=== PATIENT | female | born 1930 | race Caucasian/White ===

== ENCOUNTER 2016-07-08 09:02 | Outpatient (RCR) | payer MEDICARE, OTHER ==
[~2016-07-08 09:02] MED LIST: GLIM2TAB PO; LIRA0.6P SQ; MTF500T PO; MTP25TSR PO; MULT-608 PO; [UNRECOGNIZED DRUG - OTHER] PO
--- OUTSIDE RECORDS SUMMARY | 2016-07-08 09:05 | XMS REPORT | Continuity of Care Document ---
Author Author [facility] Organization [facility] Address Unknown Phone Unavailable Care Team Providers Care Civil Clerk Name Role Phone AUDREY GAUTAM DO PCP Insurance Providers Payer Name Policy Number Subscriber Name Relationship [employer]ps Medicare [id number] DipaktrishkathevinnieYogesh Coleman 18 Self / Same As Patient Enter Insurance Name [id number] DipaktrishkatheYogesh [place] 18 Self / Same As Patient Advance Directives Directive Response Recorded Date/Time Advance Directives No 11/06/14 7:45am Organ Donor No 11/06/14 7:45am Problems No problem information available. Medications Current Home Medications Medication Dose Units Route Directions Days/Qty Instructions Start Date Metformin Hcl (Glucophage) 500 Mg 1 Each Oral Twice A Day With Meals 08/11/10 Glimepiride 2 Mg 2 Mg Oral Daily 08/11/10 Metoprolol Succinate 25 Mg 1 Each Oral Daily 08/11/10 Liraglutide 0.6 Mg/0.1 Ml 1.2 Mg Sub-Q Daily 08/11/10 Multivitamins 1 Tab 1 Tab Oral Daily 08/11/10 [Neutroview] 1 Tab Oral Daily 08/11/10 Social History Social History Problem Response Recorded Date/Time Recent Foreign Travel N [place] 10/03/2015 8:45am Do you dip or chew tobacco? No 11/06/2014 7:45am Hospital Discharge Instructions No hospital discharge instructions. Plan of Care Prescriptions See Medication Section Functional Status No functional status results. Allergies, Adverse Reactions, Alerts Allergen Type Severity Reaction Status Last Updated NKANo Known Allergies Allergy Unknown Active 02/25/06 Immunizations No immunization records. Vital Signs No known vital signs results. Results Laboratory Results Test Name Result Units Flags Reference Collection Date/Time Result Date/ Time Comments White Blood Count 4.2 10^3/uL L 4.3-11.0 10/03/2015 9:00am 10/03/2015 9: 09am Red Blood Count 4.29 10^6/uL L 4.35-5.85 10/03/2015 9:00am 10/03/2015 9: 09am Hemoglobin 14.4 G/DL 11.5-16.0 10/03/2015 9:00am 10/03/2015 9:09am Hematocrit 42 % 35-52 10/03/2015 9:00am 10/03/2015 9:09am Mean Corpuscular Volume 97 FL 80-99 10/03/2015 9:00am 10/03/2015 9: 09am Mean Corpuscular Hemoglobin 34 PG 25-34 10/03/2015 9:00am 10/03/2015 9: 09am Mean Corpuscular Hemoglobin Concent 35 G/DL 32-36 10/03/2015 9:00am 10/2015 9:09am Red Cell Distribution Width 12.1 % 10.0-14.5 10/03/2015 9:00am 2015 9:09am Platelet Count 180 10^3/uL 130-400 10/03/2015 9:00am 10/03/2015 9:09am Mean Platelet Volume 10.3 FL 7.4-10.4 10/03/2015 9:00am 10/03/2015 9: 09am Neutrophils (%) (Auto) 45 % 42-75 10/03/2015 9:00am 10/03/2015 9:09am Lymphocytes (%) (Auto) 39 % 12-44 10/03/2015 9:00am 10/03/2015 9:09am Monocytes (%) (Auto) 9 % 0-12 10/03/2015 9:00am 10/03/2015 9:09am Eosinophils (%) (Auto) 3 % 0-10 10/03/2015 9:00am 10/03/2015 9:09am Basophils (%) (Auto) 4 % 0-10 10/03/2015 9:00am 10/03/2015 9:09am Neutrophils # (Auto) 1.9 X 10^3 1.8-7.8 10/03/2015 9:00am 10/03/2015 9: 09am Lymphocytes # (Auto) 1.6 X 10^3 1.0-4.0 10/03/2015 9:00am 10/03/2015 9: 09am Monocytes # (Auto) 0.4 X 10^3 0.0-1.0 10/03/2015 9:00am 10/03/2015 9: 09am Eosinophils # (Auto) 0.1 10^3/uL 0.0-0.3 10/03/2015 9:00am 10/03/2015 9 :09am Basophils # (Auto) 0.2 10^3/uL H 0.0-0.1 10/03/2015 9:00am 10/03/2015 9: 09am Sodium Level 139 MMOL/L 135-145 10/03/2015 9:00am 10/03/2015 9:29am Potassium Level 4.3 MMOL/L 3.6-5.0 10/03/2015 9:00am 10/03/2015 9:29am Chloride Level 102 MMOL/L 98-107 10/03/2015 9:00am 10/03/2015 9:29am Carbon Dioxide Level 24 MMOL/L 21-32 10/03/2015 9:00am 10/03/2015 9: 29am Anion Gap 13 MMOL/L 5-14 10/03/2015 9:00am 10/03/2015 9:29am Blood Urea Nitrogen 10 MG/DL 7-18 10/03/2015 9:00am 10/03/2015 9:29am Creatinine 0.73 MG/DL 0.60-1.30 10/03/2015 9:00am 10/03/2015 9:29am BUN/Creatinine Ratio 14 10/03/2015 9:00am 10/03/2015 9:29am Estimat Glomerular Filtration Rate > 60 10/03/2015 9:00am 2015 9:29am GFR INTERPRETIVE DATA UNITS FOR ESTIMATED GFR (eGFR): mL/min/1.73 M2 REFERENCE RANGE FOR ESTIMATED GFR (eGFR) eGFR NORMAL eGFR >60 MODERATELY DECREASED eGFR 30-59 SEVERLY DECREASED eGFR 15-29 KIDNEY FAILURE <15 (OR DIALYSIS) Glucose Level 227 MG/DL H 70-105 10/03/2015 9:00am 10/03/2015 9:29am Calcium Level 9.3 MG/DL 8.5-10.1 10/03/2015 9:00am 10/03/2015 9:29am Total Bilirubin 0.5 MG/DL 0.1-1.0 10/03/2015 9:00am 10/03/2015 9:29am Alkaline Phosphatase 74 U/L 40-136 10/03/2015 9:00am 10/03/2015 9:29am Aspartate Amino Transf (AST/SGOT) 37 U/L H 5-34 10/03/2015 9:00am 2015 9:29am Alanine Aminotransferase (ALT/SGPT) 42 U/L 0-55 10/03/2015 9:00am 10/02 9:29am Total Protein 6.7 G/DL 6.4-8.2 10/03/2015 9:00am 10/03/2015 9:29am Albumin 3.8 G/DL 3.2-4.5 10/03/2015 9:00am 10/03/2015 9:29am Ferritin 317 NG/ML H 15-150 10/03/2015 9:00am 10/04/2015 6:55am Test performed at [address], [place] [address] CLIA# [id number], Mai Monique MD - Cherry Sorter Procedures No known history of procedures. Encounters Encounter Location Arrival/Admit Date Discharge/Depart Date Attending Provider Discharged Recurring [facility] 10/10/15 9:50am 11:59pm ROBERT BERMAN
[2016-07-08 09:42] LABS: BASOPHILS % (AUTO) 1 % (0-10); EOSINOPHILS # (AUTO) 0.2 10^3/uL (0.0-0.3); EOSINOPHILS % (AUTO) 4 % (0-10); LYMPHOCYTES # (AUTO) 1.7 X 10^3 (1.0-4.0); LYMPHOCYTES % (AUTO) 45 % (12-44); MEAN CORPUSCULAR HEMOGLOBIN 32 PG (25-34); MEAN CORPUSCULAR HGB CONC 35 G/DL (32-36); MEAN CORPUSCULAR VOLUME 92 FL (80-99); MEAN PLATELET VOLUME 10.5 FL (7.4-10.4); MONOCYTES # (AUTO) 0.4 X 10^3 (0.0-1.0); MONOCYTES % (AUTO) 10 % (0-12); NEUTROPHILS # (AUTO) 1.5 X 10^3 (1.8-7.8); NEUTROPHILS % (AUTO) 40 % (42-75); PLATELET COUNT 191 10^3/uL (130-400); RED BLOOD COUNT 4.04 10^6/uL (4.35-5.85); RED CELL DISTRIBUTION WIDTH 12.8 % (10.0-14.5); WHITE BLOOD COUNT 3.8 10^3/uL (4.3-11.0)
[2016-07-08 10:16] LABS: ALANINE AMINOTRANSFERASE 33 U/L (0-55); ALBUMIN 3.5 G/DL (3.2-4.5); ANION GAP 9 MMOL/L (5-14); ASPARTATE AMINO TRANSFERASE 39 U/L (5-34); BILIRUBIN,TOTAL 0.6 MG/DL (0.1-1.0); BLOOD UREA NITROGEN 8 MG/DL (7-18); BUN/CREATININE RATIO 12; CALCIUM 8.9 MG/DL (8.5-10.1); CARBON DIOXIDE 25 MMOL/L (21-32); CHLORIDE 104 MMOL/L (98-107); CREATININE SERUM 0.66 MG/DL (0.60-1.30); GFR ESTIMATED > 60; GLUCOSE 224 MG/DL (70-105); POTASSIUM 4.1 MMOL/L (3.6-5.0); SODIUM 138 MMOL/L (135-145); TOTAL PROTEIN 6.1 G/DL (6.4-8.2)
== END 2016-10-01 08:59 | disposition home or self-care (01) ==
LOC: ONC 09:02
PROVIDERS: ATTEND Internal Medicine Hematology & Oncology
DX: D50.9 Iron deficiency anemia, unspecified (principal); E11.9 Type 2 diabetes mellitus without complications; I10 Essential (primary) hypertension; E66.9 Obesity, unspecified; Z68.41 Body mass index [BMI] 40.0-44.9, adult; Z79.899 Other long term (current) drug therapy
CPT/HCPCS: 36415; 80053; 82728; 85025

== ENCOUNTER 2016-10-08 09:52 | Outpatient (RCR) | payer MEDICARE, OTHER ==
[2016-10-01 09:11] LABS: BASOPHILS # (AUTO) 0.1 10^3/uL (0.0-0.1); BASOPHILS % (AUTO) 1 % (0-10); EOSINOPHILS # (AUTO) 0.2 10^3/uL (0.0-0.3); EOSINOPHILS % (AUTO) 4 % (0-10); LYMPHOCYTES % (AUTO) 38 % (12-44); MEAN CORPUSCULAR HEMOGLOBIN 33 PG (25-34); MEAN CORPUSCULAR HGB CONC 36 G/DL (32-36); MEAN CORPUSCULAR VOLUME 92 FL (80-99); MEAN PLATELET VOLUME 10.3 FL (7.4-10.4); MONOCYTES # (AUTO) 0.6 X 10^3 (0.0-1.0); MONOCYTES % (AUTO) 11 % (0-12); NEUTROPHILS # (AUTO) 2.5 X 10^3 (1.8-7.8); NEUTROPHILS % (AUTO) 46 % (42-75); PLATELET COUNT 194 10^3/uL (130-400); RED BLOOD COUNT 4.14 10^6/uL (4.35-5.85); RED CELL DISTRIBUTION WIDTH 12.3 % (10.0-14.5); WHITE BLOOD COUNT 5.4 10^3/uL (4.3-11.0)
--- OUTSIDE RECORDS SUMMARY | 2016-10-01 09:22 | XMS REPORT | Continuity of Care Document ---
Author Author [facility] Organization [facility] Address Unknown Phone Unavailable Care Team Providers Care Heart Surgeon Name Role Phone AUDREY GAUTAM DO PCP Insurance Providers Payer Name Policy Number Subscriber Name Relationship [employer] [id number] DipaktrishkathevinnieYogesh Coleman 18 Self / Same As Patient Enter Insurance Name [id number] DipaktrishkatheYogesh [place] 18 Self / Same As [...] 10/03/2015 9:00am 10/04/2015 6:55am Test performed at [address], [place] [address] CLIA# [id number], Mai Monique MD - Voice Network Administrator Procedures No known history of procedures. Encounters Encounter Location Arrival/Admit Date Discharge/Depart Date Attending Provider Discharged Recurring [facility] 10/10/15 9:50am 11:59pm ROBERT BERMAN
[2016-10-01 09:58] LABS: ALANINE AMINOTRANSFERASE 39 U/L (0-55); ALBUMIN 3.9 G/DL (3.2-4.5); ANION GAP 12 MMOL/L (5-14); ASPARTATE AMINO TRANSFERASE 40 U/L (5-34); BILIRUBIN,TOTAL 0.6 MG/DL (0.1-1.0); BLOOD UREA NITROGEN 10 MG/DL (7-18); BUN/CREATININE RATIO 13; CALCIUM 9.5 MG/DL (8.5-10.1); CARBON DIOXIDE 24 MMOL/L (21-32); CHLORIDE 104 MMOL/L (98-107); CREATININE SERUM 0.77 MG/DL (0.60-1.30); GFR ESTIMATED > 60; GLUCOSE 143 MG/DL (70-105); POTASSIUM 4.2 MMOL/L (3.6-5.0); SODIUM 140 MMOL/L (135-145); TOTAL PROTEIN 6.7 G/DL (6.4-8.2)
[2016-12-18] MEDS ORDERED: METO-333 PO (10:10)
[2016-12-18] MEDS ORDERED: GLIM4TAB PO (10:10)
[2016-12-18] MEDS ORDERED: METF-478 PO (10:10)
[2016-12-19] MEDS ORDERED: METO-272 PO (11:40)
[2016-12-19] MEDS ORDERED: NITR-65 PO (11:40)
== END 2016-12-30 | disposition home or self-care (01) ==
LOC: ONC 09:52
PROVIDERS: ATTEND Internal Medicine Hematology & Oncology
DX: D50.9 Iron deficiency anemia, unspecified (principal); E11.9 Type 2 diabetes mellitus without complications; I10 Essential (primary) hypertension; E66.9 Obesity, unspecified; Z68.41 Body mass index [BMI] 40.0-44.9, adult; Z79.899 Other long term (current) drug therapy
CPT/HCPCS: 36415; 80053; 82728; 85025; 99213

== ENCOUNTER 2016-12-17 14:03 | Inpatient (IN) | payer MEDICARE, OTHER ==
[2016-12-17] VITALS (8 sets, daily range): BP systolic 139–181; BP diastolic 57–82
[~2016-12-17] VITALS: Ht 152.4 cm; Wt 91.3 kg
--- NOTE | 2016-12-17 14:25 | ED Neurological Problem ---
General Chief Complaint: Neuro-Stroke Like Symptoms Stated Complaint: STROKE LIKE SYMPTOMS Source: patient Exam Limitations: no limitations History of Present Illness Time seen by provider: 14:06 Initial Comments Here with report of difficulty with speech. At about 110 p.m. this afternoon, patient was on the phone with her friend and about 3 minutes into the conversation, patient started having difficulty with speech. Patient's daughter was called who brought her to the ER. Word searching difficulty and confusion continued until arrival. Denies nausea or vomiting. Denies chest pain. Denies breathing problems. Timing/Duration: 1 hour, other (unknown last known well time) Severity: moderate Associated Symptoms: confusion, No fever/chills, No muscle spasms, No nausea/ vomiting, No numbness in legs/feet, No trouble walking Allergies and Home Medications Allergies Coded Allergies: No Known Drug Allergies (Unverified , 12/17/16) Home Medications Glimepiride 2 Mg Tablet, 2 MG PO DAILY, (Reported) Metformin Hcl 500 Mg Tablet, 1 EACH PO BID WITH MEALS, (Reported) Metoprolol Succinate 25 Mg Tab.sr.24h, 1 EACH PO DAILY, (Reported) Multivitamins 1 Tab Tablet, 1 TAB PO DAILY, (Reported) Constitutional: see HPI, No fever, No weakness Eyes: No Symptoms Reported Ears, Nose, Mouth, Throat: no symptoms reported Respiratory: No cough, No short of breath Cardiovascular: no symptoms reported Gastrointestinal: no symptoms reported Genitourinary: no symptoms reported Musculoskeletal: no symptoms reported Skin: no symptoms reported Psychiatric/Neurological: See HPI, Denies Unable to Move Lower Ext, Denies Unable to Move Upper Ext Endocrine: No Symptoms Reported All Other Systems Reviewed Negative Unless Noted: Yes Past Abdzcjl-Vspdku-Qyeiyl Hx Patient Social History Alcohol Use: Denies Use Recreational Drug Use: No Smoking Status: Never a Smoker Recent Foreign Travel: No Contact w/Someone Who Travel: No Surgeries HX Surgeries: Yes Surgeries: Abdominal, Appendectomy, Eye Surgery, Gallbladder, Hysterectomy, Orthopedic Respiratory Hx Respiratory Disorders: No Cardiovascular Hx Cardiac Disorders: Yes Cardiac Disorders: Hypertension Neurological Hx Neurological Disorders: No Reproductive System Hx Reproductive Disorders: No Genitourinary Hx Genitourinary Disorders: Yes (INCONTINENCE) Gastrointestinal Hx Gastrointestinal Disorders: No Musculoskeletal Hx Musculoskeletal Disorders: Yes Endocrine Hx Endocrine Disorders: Yes Endocrine Disorders: Diabetes, Non-Insulin dep Blood Transfusions Hx Blood Disorders: No Reviewed Nursing Assessment Reviewed/Agree w Nursing PMH: Yes Family Medical History Significant Family History: No Pertinent Family Hx Physical Exam Vital Signs Vital Sign - Last 12Hours 12/17/16 14:03 Temp 98.3 Pulse 103 Resp 18 B/P (MAP) 198/112 Pulse Ox 98 O2 Delivery Room Air Capillary Refill : General Appearance: WD/WN, no apparent distress HEENT: PERRL/EOMI, pharynx normal Neck: full range of motion, supple Respiratory: lungs clear, normal breath sounds Cardiovascular: no murmur, tachycardia Gastrointestinal: non tender, soft Back: normal inspection, no CVA tenderness, no vertebral tenderness Extremities: non-tender, normal inspection Neurologic/Psychiatric: alert, oriented x 3 Crainal Nerves: normal hearing, normal speech, PERRL Coordination/Gait: normal finger to nose Motor/Sensory: no motor deficit, no sensory deficit, no pronator drift Skin: normal color, warm/dry Focused Exam Lactic Acid Level Laboratory Tests Test 12/17/16 15:44 Lactic Acid Level 2.89 MMOL/L (0.50-2.00) *H Progress/Results/Core Measures Results/Orders Lab Results Laboratory Tests Test 12/17/16 14:23 12/17/16 14:38 12/17/16 14:43 12/17/16 15:44 Range/Units White Blood Count 5.4 4.3-11.0 10^3/uL Red Blood Count 4.18 L 4.35-5.85 10^6/uL Hemoglobin 13.7 11.5-16.0 G/DL Hematocrit 39 35-52 % Mean Corpuscular Volume 93 80-99 FL Mean Corpuscular Hemoglobin 33 25-34 PG Mean Corpuscular Hemoglobin Concent 35 32-36 G/DL Red Cell Distribution Width 12.4 10.0-14.5 % Platelet Count 151 130-400 10^3/uL Mean Platelet Volume 11.0 H 7.4-10.4 FL Neutrophils (%) (Auto) 47 42-75 % Lymphocytes (%) (Auto) 41 12-44 % Monocytes (%) (Auto) 8 0-12 % Eosinophils (%) (Auto) 4 0-10 % Basophils (%) (Auto) 1 0-10 % Neutrophils # (Auto) 2.5 1.8-7.8 X 10^3 Lymphocytes # (Auto) 2.2 1.0-4.0 X 10^3 Monocytes # (Auto) 0.4 0.0-1.0 X 10^3 Eosinophils # (Auto) 0.2 0.0-0.3 10^3/uL Basophils # (Auto) 0.0 0.0-0.1 10^3/uL Sodium Level 137 135-145 MMOL/L Potassium Level 4.1 3.6-5.0 MMOL/L Chloride Level 103 98-107 MMOL/L Carbon Dioxide Level 24 21-32 MMOL/L Anion Gap 10 5-14 MMOL/L Blood Urea Nitrogen 8 7-18 MG/DL Creatinine 0.76 0.60-1.30 MG/DL Estimat Glomerular Filtration Rate > 60 BUN/Creatinine Ratio 11 Glucose Level 206 H 70-105 MG/DL Calcium Level 9.2 8.5-10.1 MG/DL Total Bilirubin 0.5 0.1-1.0 MG/DL Aspartate Amino Transf (AST/SGOT) 44 H 5-34 U/L Alanine Aminotransferase (ALT/SGPT) 39 0-55 U/L Alkaline Phosphatase 68 40-136 U/L Troponin I < 0.30 <0.30 NG/ML Total Protein 6.6 6.4-8.2 G/DL Albumin 3.7 3.2-4.5 G/DL Prothrombin Time 12.5 12.2-14.7 SEC INR Comment 1.0 0.8-1.4 Activated Partial Thromboplast Time 30 24-35 SEC D-Dimer 0.66 H 0.00-0.49 UG/ML Urine Color YELLOW Urine Clarity CLEAR Urine pH 6 5-9 Urine Specific Channing 1.010 L 1.016-1.022 Urine Protein 1+ H NEGATIVE Urine Glucose (UA) 2+ H NEGATIVE Urine Ketones NEGATIVE NEGATIVE Urine Nitrite NEGATIVE NEGATIVE Urine Bilirubin NEGATIVE NEGATIVE Urine Urobilinogen NORMAL NORMAL MG/DL Urine Leukocyte Esterase 2+ H NEGATIVE Urine RBC (Auto) NEGATIVE NEGATIVE Urine RBC NONE /HPF Urine WBC 5-10 H /HPF Urine Squamous Epithelial Cells NONE /HPF Urine Crystals NONE /LPF Urine Bacteria LARGE H /HPF Urine Casts NONE /LPF Urine Mucus NEGATIVE /LPF Urine Culture Indicated YES Lactic Acid Level 2.89 *H 0.50-2.00 MMOL/L My Orders Orders - SANCHEZ BAEZA MD Cbc With Automated Diff (12/17/16 14:07) Protime With Inr (12/17/16 14:07) Partial Thromboplastin Time (12/17/16 14:07) Comprehensive Metabolic Panel (12/17/16 14:07) Fibrin Degradation Products (12/17/16 14:07) Troponin I (12/17/16 14:07) Ua Culture If Indicated (12/17/16 14:07) Chest 1 View, Ap/Pa Only (12/17/16 14:07) Catheter(Urinary) Insert & Ass 03,15 (12/17/16 14:07) Ekg Tracing (12/17/16 14:07) Nothing By Mouth (12/17/16 Dinner) Accucheck Stat ONCE (12/17/16 14:07) Saline Lock/Iv-Start (12/17/16 14:07) Saline Lock/Iv-Start (12/17/16 14:07) Vital Signs-Stroke Q1H (12/17/16 14:07) Ct Head Wo-R/O Stroke (12/17/16 14:07) O2 (12/17/16 14:07) Intake & Output 06,14,22 (12/17/16 14:07) Monitor-Rhythm Ecg Trace Only (12/17/16 14:07) Dysphagia Screening Tool (12/17/16 14:07) Sao2 W/End-Tidal Monitoring (O Q15M (12/17/16 14:07) Labetalol Injection (Normodyne Injection (12/17/16 14:45) Labetalol Injection (Normodyne Injection (12/17/16 14:31) Alteplase (Activase) (Activase Injection (12/17/16 14:40) Urine Culture (12/17/16 14:43) Lactic Acid Analyzer (12/17/16 15:02) Blood Culture (12/17/16 15:02) Ceftriaxone Injection (Rocephin Injectio (12/17/16 15:15) Medications Given in ED Current Medications Medications Dose Ordered Sig/Kate Route Start Time Stop Time Status Last Admin Dose Admin Aspirin 324 mg ONCE ONCE PO 12/17/16 15:45 12/17/16 15:47 DC 12/17/16 15:56 324 MG Ceftriaxone Sodium 1000 mg/ Sodium Chloride 50 ml @ 100 mls/hr ONCE ONCE IV 12/17/16 15:15 12/17/16 15:45 DC 12/17/16 16:03 100 MLS/HR Labetalol HCl 20 mg ONCE ONCE IV 12/17/16 14:45 12/17/16 14:46 DC 12/17/16 14:38 20 MG Labetalol HCl 20 mg STK-MED ONCE .ROUTE 12/17/16 14:31 12/17/16 14:36 DC 12/17/16 14:57 20 MG Vital Signs/I&O Vital Sign - Last 12Hours 12/17/16 12/17/16 14:03 14:03 Temp 98.3 Pulse 103 Resp 18 B/P (MAP) 198/112 Pulse Ox 98 98 O2 Delivery Room Air Point of Care Testing Finger Stick Blood Glucose: 190 Blood Glucose Action Taken: notified Progress Note : Progress Note Seen and evaluated. Stroke team activation on arrival. Patient has difficulty with speech and there is confusion. Stroke scale only positive for confusion and speech difficulty. CT head, labs, EKG, chest x-ray, IVs and Anthony catheter ordered. Monitor patient. 1439: Patient does score 2 on the stroke scale. I did discuss the case with the neurologist on-call at , Dr. Alvarez. We both agree that patient would benefit from TPA given current findings. 1445: Labetalol 20 mg IV given for her elevated blood pressure and her blood pressure is improved. Patient is actually symptom-free currently. We did ambulate the patient and she is able to walk with a steady gait on her own accord. Blood pressure elevating again. Repeat labetalol 20 mg IV ordered. 1459: Blood pressure 161/83 with resolved symptoms. 1501: UTI noted. Blood cultures and lactic acid ordered although there is no indication of sepsis or septic shock currently. Rocephin 1 g IV afterwards. We will admit the patient to the hospital. 1507: She has responded quite well to 2 labetalol dosings and blood pressure currently 169/79 with heart rate of 92 and O2 sat 98 percent on room air. 1337: I did discuss the case with Dr. Finn and she accepts patient for admission, inpatient status. Case discussed with Dr. Morrison at 1542. He accepts patient in consult. He is recommending Toprol-XL 100 mg by mouth now and then daily. This was ordered. Discussed findings, concerns and admission with patient and family who agree with plan. 1604: Patient had return of speech difficulty. Stroke scale repeated and only shows abnormality related to confusion and word finding similar to previous. I did rediscuss the case with stroke team. Given findings and situation new findings of elevated lactic acid this may be related to urinary tract infection. This also could be related to waxing and waning stroke. TPA may be indicated and could be given and the situation. He is recommending discussion with family. 1634: I did have a long discussion with patient and family about TPA administration. During this discussion, patient's symptoms resolved. Patient was only given 50 mg of Toprol-XL as her blood pressure had actually decreased to 130 over 80s. Currently 188/84 with heart rate of 94 and O2 sat are 97 percent. Patient does have findings of severe sepsis but not septic shock given her lactic acid of 2.89 and does not require high-volume fluid resuscitation. She has had blood cultures and lactic acid drawn and has had initial antibiotic of Rocephin 1 g IV. We will continue that. Patient was changed to ICU admission given waxing and waning symptoms. Patient and family agree with holding on TPA given current situation. She is currently back at complete symptom resolution and the option of TPA would be open starting at new time of change if found. ECG Initial ECG Impression Date: December 17, 2016 Initial ECG Impression Time: 14:11 Initial ECG Rate: 108 Initial ECG Rhythm: S.Tach Comment Sinus tachycardia with normal axis. No evidence of ST elevation FL. Similar to previous but rate increased from 11/16/14. Interpreted by me. Diagnostic Imaging Diagonstic Imaging: CT Plain Films/CT/US/NM/MRI: head Comments NAME: YOGESH OLMEDO [facility] REC#: [id number] PT STATUS: REG ER : 1932 PHYSICIAN: SANCHEZ BAEZA MD ADMIT DATE: 12/17/16/ER Draft Date of Exam:12/17/16 CT HEAD WO-R/O STROKE EXAM: CT HEAD WO-R/O STROKE INDICATION: Stroke. Slurred speech. COMPARISON: None. FINDINGS: Moderate generalized cerebral and cerebellar parenchymal volume loss. Moderate leukoaraiosis. No CT evidence of acute infarction. No intracranial hemorrhage, mass effect, hydrocephalus, or extra-axial fluid collections. Intracranial vascular calcifications. The paranasal sinuses and mastoids are clear. Orbits are unremarkable. IMPRESSION: No acute intracranial CT findings. Dictated on workstation # [id number] Dict: 12/17/16 1431 Trans: 12/17/16 1436 SAVANNAH [id number] Interpreted by: HODA BLAIR MD Electronically signed by: [facility] Imaging: Xray Plain Films/CT/US/NM/MRI: chest Comments NAME: YOGESH OLMEDO [facility] REC#: [id number] PT STATUS: REG ER : 1932 PHYSICIAN: SANCHEZ BAEZA MD ADMIT DATE: 12/17/16/ER Signed Date of Exam: 12/17/16 CHEST 1 VIEW, AP/PA ONLY Indication: Stroke symptoms PA chest obtained at 2233 hrs pm, and compared with 08/13/14. The heart is mildly enlarged. The mediastinal silhouette is unremarkable. There are mild chronic appearing increased basilar markings. There is no acute infiltrate or pneumothorax or pleural fluid. IMPRESSION: Mild cardiomegaly with mild chronic appearing increased basilar markings. No acute consolidation or pleural fluid. Dictated by: Dictated on workstation # [id number] Dict: 12/17/16 1435 Trans: 12/17/16 1454 Interpreted by: ESCOBAR ADAIR MD Electronically signed by: ESCOBAR ADAIR MD 12/17/16 1454 Departure Communication Time/Spoke to Admitting Phy: 15:37 Time/Spoke to Consulting Physi: 15:42 Impression Impression: Primary Impression: Hypertensive encephalopathy Additional Impressions: TIA (transient ischemic attack) Qualified Codes: G45.9 - Transient cerebral ischemic attack, unspecified UTI (urinary tract infection) Qualified Codes: N30.00 - Acute cystitis without hematuria Disposition: ADMITTED INPATIENT Condition: Stable Decision to Admit Reason: Admit from ER (General) Decision to Admit/Date: December 17, 2016 Time/Decision to Admit Time: 15:37 Departure-Patient Inst. Referrals: AUDREY GAUTAM DO (PCP) Primary Care Physician ARMAAN GAUTAM, MIKE (Family) Primary Care Physician SANCHEZ BAEZA MD December 17, 2016 14:25
[2016-12-17 14:30] LABS: BASOPHILS % (AUTO) 1 % (0-10); EOSINOPHILS # (AUTO) 0.2 10^3/uL (0.0-0.3); EOSINOPHILS % (AUTO) 4 % (0-10); LYMPHOCYTES # (AUTO) 2.2 X 10^3 (1.0-4.0); LYMPHOCYTES % (AUTO) 41 % (12-44); MEAN CORPUSCULAR HEMOGLOBIN 33 PG (25-34); MEAN CORPUSCULAR HGB CONC 35 G/DL (32-36); MEAN CORPUSCULAR VOLUME 93 FL (80-99); MONOCYTES # (AUTO) 0.4 X 10^3 (0.0-1.0); MONOCYTES % (AUTO) 8 % (0-12); NEUTROPHILS # (AUTO) 2.5 X 10^3 (1.8-7.8); NEUTROPHILS % (AUTO) 47 % (42-75); PLATELET COUNT 151 10^3/uL (130-400); RED BLOOD COUNT 4.18 10^6/uL (4.35-5.85); RED CELL DISTRIBUTION WIDTH 12.4 % (10.0-14.5); WHITE BLOOD COUNT 5.4 10^3/uL (4.3-11.0)
[2016-12-17] MEDS ORDERED: LABETALOL HCL 20 MG/4 ML VIAL ONE (14:31)
--- NOTE | 2016-12-17 14:36 | Diagnostic Imaging Report ---
EXAM: CT HEAD WO-R/O STROKE INDICATION: Stroke. Slurred speech. COMPARISON: None. FINDINGS: Moderate generalized cerebral and cerebellar parenchymal volume loss. Moderate leukoaraiosis. No CT evidence of acute infarction. No intracranial hemorrhage, mass effect, hydrocephalus, or extra-axial fluid collections. Intracranial vascular calcifications. The paranasal sinuses and mastoids are clear. Orbits are unremarkable. IMPRESSION: No acute intracranial CT findings. Dictated by: Dictated on workstation # [id number]
--- NOTE | 2016-12-17 14:39 | Diagnostic Imaging Report ---
Indication: Stroke symptoms PA chest obtained at 2233 hrs pm, and compared with 08/13/14. The heart is mildly enlarged. The mediastinal silhouette is unremarkable. There are mild chronic appearing increased basilar markings. There is no acute infiltrate or pneumothorax or pleural fluid. IMPRESSION: Mild cardiomegaly with mild chronic appearing increased basilar markings. No acute consolidation or pleural fluid. Dictated by: Dictated on workstation # [id number]
[2016-12-17] MEDS ORDERED: ALTEPLASE 100 MG/VIAL (ACTIVASE) IV ONE (14:40)
[2016-12-17] MEDS ORDERED: LABETALOL HCL 20 MG/4 ML VIAL IV ONE (14:45)
[2016-12-17 14:52] LABS: BILIRUBIN,URINE NEGATIVE (NEGATIVE); KETONES,URINE NEGATIVE (NEGATIVE); LEUKOCYTE ESTERASE ,URINE 2+ (NEGATIVE); NITRITE,URINE NEGATIVE (NEGATIVE); PH,URINE 6 (5-9); PROTEIN,URINE 1+ (NEGATIVE); UROBILINOGEN,URINE NORMAL (NORMAL)
[2016-12-17 14:55] LABS: PROTHROMBIN TIME PATIENT 12.5 SEC (12.2-14.7)
[2016-12-17 14:57] LABS: ALANINE AMINOTRANSFERASE 39 U/L (0-55); ALBUMIN 3.7 G/DL (3.2-4.5); ANION GAP 10 MMOL/L (5-14); ASPARTATE AMINO TRANSFERASE 44 U/L (5-34); BILIRUBIN,TOTAL 0.5 MG/DL (0.1-1.0); BLOOD UREA NITROGEN 8 MG/DL (7-18); BUN/CREATININE RATIO 11; CALCIUM 9.2 MG/DL (8.5-10.1); CARBON DIOXIDE 24 MMOL/L (21-32); CHLORIDE 103 MMOL/L (98-107); CREATININE SERUM 0.76 MG/DL (0.60-1.30); GFR ESTIMATED > 60; GLUCOSE 206 MG/DL (70-105); POTASSIUM 4.1 MMOL/L (3.6-5.0); SODIUM 137 MMOL/L (135-145); TOTAL PROTEIN 6.6 G/DL (6.4-8.2)
[2016-12-17 15:08] LABS: TROPONIN I < 0.30 NG/ML (<0.30)
[2016-12-17] MEDS ORDERED: cefTRIAXone INJECTION 1,000 MG in NS (IVPB) 50 ML IV ONE (15:15)
[2016-12-17] MEDS ORDERED: ASPIRIN 81 MG CHEW (CHILDREN'S ASA) PO ONE (15:45)
[2016-12-17] MEDS ORDERED: ASPIRIN 325 MG (5 GR) TABLET ONE (15:55)
[2016-12-17] MEDS ORDERED: meTOprolol SUCCINATE 100 MG (TOPROL XL) TAB PO ONE (16:00)
[2016-12-17] MEDS ORDERED: CATHETER FLUSH 10 ML SYR IV PRN (17:15)
[2016-12-17] MEDS ORDERED: NS IV 1000 ML 1,000 ML IV SCH (17:15)
[2016-12-17] MEDS ORDERED: meTOprolol 5 MG/5 ML (LOPRESSOR) VIAL IV PRN (18:15)
--- NOTE | 2016-12-17 18:45 | Diagnostic Imaging Report ---
INDICATION: Transient ischemic attacks. EXAMINATION: Carotid Doppler study was performed in the routine fashion with color flow Doppler and waveform analysis. FINDINGS: There is some plaquing visualized in the carotid bifurcations on both sides. There is no significant velocity elevation. ICA/CCA systolic velocity ratio is 0.94 maximally in the right carotid territory and 0.70 maximally in the left carotid territory. Both vertebrals show antegrade flow. IMPRESSION: Mild plaquing in the carotid bifurcations on both sides with no significant stenosis hemodynamically. Dictated by: Dictated on workstation # [id number]
[2016-12-17] MEDS ORDERED: ACETAMINOPHEN 325 MG TABLET/CAPLET (TYLENOL) ONE (20:57)
[2016-12-17] MEDS: ACETAMINOPHEN 500 MG TAB (TYLENOL) PO PRN (21:04)
[2016-12-17] MEDS ORDERED: hydrALAZINE (APESOLINE) 20 MG/ML VIAL ONE (22:16)
[2016-12-17] MEDS: inSUlin (REGULAR) HUMAN 1 UNIT/0.01 ML (CHARGE PER UNIT) SC SCH (22:25)
[2016-12-17] MEDS ORDERED: hydrALAZINE (APESOLINE) 20 MG/ML VIAL IV ONE (22:30)
[2016-12-17] MEDS: NS IV 1000 ML 1,000 ML IV SCH ×2 (22:34→23:31)
[2016-12-18] VITALS (13 sets, daily range): BP systolic 120–181; BP diastolic 51–82
[2016-12-18] MEDS: NS IV 1000 ML 1,000 ML IV SCH (00:32)
[2016-12-18] MEDS ORDERED: ACETAMINOPHEN 325 MG TABLET/CAPLET (TYLENOL) ONE (01:38)
[2016-12-18] MEDS: ACETAMINOPHEN 500 MG TAB (TYLENOL) PO PRN (01:43)
[2016-12-18] MEDS ORDERED: KETOROLAC 30 MG/ML VIAL IVP ONE (03:15)
[2016-12-18 04:49] LABS: BASOPHILS % (AUTO) 0 % (0-10); EOSINOPHILS # (AUTO) 0.1 10^3/uL (0.0-0.3); EOSINOPHILS % (AUTO) 1 % (0-10); LYMPHOCYTES # (AUTO) 1.6 X 10^3 (1.0-4.0); LYMPHOCYTES % (AUTO) 20 % (12-44); MEAN CORPUSCULAR HEMOGLOBIN 33 PG (25-34); MEAN CORPUSCULAR HGB CONC 35 G/DL (32-36); MEAN CORPUSCULAR VOLUME 93 FL (80-99); MEAN PLATELET VOLUME 10.9 FL (7.4-10.4); MONOCYTES # (AUTO) 0.6 X 10^3 (0.0-1.0); MONOCYTES % (AUTO) 8 % (0-12); NEUTROPHILS # (AUTO) 5.5 X 10^3 (1.8-7.8); NEUTROPHILS % (AUTO) 71 % (42-75); PLATELET COUNT 207 10^3/uL (130-400); RED BLOOD COUNT 4.06 10^6/uL (4.35-5.85); RED CELL DISTRIBUTION WIDTH 12.5 % (10.0-14.5); WHITE BLOOD COUNT 7.7 10^3/uL (4.3-11.0)
[2016-12-18 05:08] LABS: ALANINE AMINOTRANSFERASE 32 U/L (0-55); ALBUMIN 3.4 G/DL (3.2-4.5); ANION GAP 13 MMOL/L (5-14); ASPARTATE AMINO TRANSFERASE 39 U/L (5-34); BILIRUBIN,TOTAL 0.8 MG/DL (0.1-1.0); BLOOD UREA NITROGEN 6 MG/DL (7-18); BUN/CREATININE RATIO 10; CALCIUM 8.6 MG/DL (8.5-10.1); CARBON DIOXIDE 21 MMOL/L (21-32); CHLORIDE 104 MMOL/L (98-107); CREATININE SERUM 0.63 MG/DL (0.60-1.30); GFR ESTIMATED > 60; GLUCOSE 124 MG/DL (70-105); MAGNESIUM 1.8 MG/DL (1.8-2.4); PHOSPHORUS 3.6 MG/DL (2.3-4.7); SODIUM 138 MMOL/L (135-145)
[2016-12-18] MEDS ORDERED: KCL 20 MEQ TAB (K-DUR) PO SCH (06:00)
[2016-12-18] MEDS ORDERED: POTASSIUM CL 10MEQ/50ML IVPB 50 ML IV SCH (06:00)
[2016-12-18] MEDS: inSUlin (REGULAR) HUMAN 1 UNIT/0.01 ML (CHARGE PER UNIT) SC SCH ×4 (06:00→22:01)
[2016-12-18] MEDS ORDERED: MAGNESIUM 1 GM/100 ML IVPB 100 ML IV SCH (06:00)
--- NOTE | 2016-12-18 06:15 | Pulmonary Consultation ---
History of Present Illness History of Present Illness Date of Consultation 12/18/16 06:10 Date of Admission History of Present Illness 86yo presented to ED secondary to dysphonia. symptoms started at 1310 while she was on the phone with a friend. Patient's daughter was called and brought her to ED. Pt did not receive TPA. NIH in ED 2 and is now 0. Denies nausea or vomiting. Denies chest pain. Denies breathing problems. Pt was also found to have a UTI without leukocytosis however LA was found to be 2.96. CT head is negative. No prior episodes like this. I am consulted for pulmonary management. Allergies and Home Medications Allergies Coded Allergies: No Known Drug Allergies (Unverified , 12/17/16) Home Medications Glimepiride 2 Mg Tablet, 2 MG PO DAILY, (Reported) Metformin Hcl 500 Mg Tablet, 1 EACH PO BID WITH MEALS, (Reported) Metoprolol Succinate 25 Mg Tab.sr.24h, 1 EACH PO DAILY, (Reported) Multivitamins 1 Tab Tablet, 1 TAB PO DAILY, (Reported) Past Wwxybxq-Xyayru-Fuqoos Hx Patient Social History Alcohol Use: Denies Use Recreational Drug Use: No Smoking Status: Never a Smoker Recent Foreign Travel: No Contact w/Someone Who Travel: No Recent Infectious Disease Expo: No Recent Hopitalizations: No Physical Abuse Screen: No Sexual Abuse: No Immunizations Up To Date Date of Pneumonia Vaccine: Jul 02, 2016 Seasonal Allergies Seasonal Allergies: No Surgeries HX Surgeries: Yes Surgeries: Abdominal, Appendectomy, Eye Surgery, Gallbladder, Hysterectomy, Orthopedic Respiratory Hx Respiratory Disorders: No Cardiovascular Hx Cardiac Disorders: Yes Cardiac Disorders: Hypertension Neurological Hx Neurological Disorders: No Reproductive System : No Hx Reproductive Disorders: No Sexually Transmitted Disease: No Genitourinary Hx Genitourinary Disorders: Yes (INCONTINENCE) Gastrointestinal Hx Gastrointestinal Disorders: No Musculoskeletal Hx Musculoskeletal Disorders: Yes Endocrine Hx Endocrine Disorders: Yes Endocrine Disorders: Diabetes, Non-Insulin dep Blood Transfusions Hx Blood Disorders: No Reviewed Nursing Assessment Reviewed/Agree w Nursing PMH: Yes Family Medical History Significant Family History: No Pertinent Family Hx Review of Systems Constitutional: Malaise, Weakness, No: Chills, Fever, Other, Sweats Eyes: No: Conjunctivae inflammation, Eyelid inflammation, Other, Pain, Redness , Vision change ENT: No: Ear discharge, Ear pain, Mouth pain, Mouth swelling, Nose congestion, Nose discharge, Nose pain, Other, Throat pain, Throat swelling Respiratory: No: Cough, Dry, Hemoptysis, Other, Pleuritic Pain, SOB with excertion, Shortness of breath, Sputum, Wheezing, Wheezing Cardiovascular: No: Chest Pain, Edema, Lt Headedness, Orthopnea, Other, Palpitations, Paroxysmal Noc. Dyspnea Gastrointestinal: No: Abdominal Pain, Constipation, Diarrhea, Hematochezia, Melena, Nausea, Other, Vomiting Genitourinary: No Dysuria, No Frequency, No Incontinence, No Hematuria, No Retention, No Other Musculoskeletal: No: arm pain, back pain, foot pain, hand pain, leg pain, neck pain, other, shoulder pain Skin: No: Bruising, Jaundice, Lesions, Other, Rash Neurological: Change in speech, Confusion, Incoordination, Weakness Exam Exam Vital Signs Date Time Temp Pulse Resp B/P (MAP) Pulse Ox O2 Delivery O2 Flow Rate FiO2 12/18/16 04:00 98 12/18/16 04:00 99.3 90 18 130/67 95 Room Air 12/18/16 03:00 87 15 152/75 94 Room Air 12/18/16 02:00 89 11 140/71 99 Room Air 12/18/16 01:00 98 22 120/63 94 Room Air 12/18/16 00:59 85 12/18/16 00:00 98 12/18/16 00:00 97.7 100 18 134/53 90 Room Air 12/17/16 23:00 101 11 147/57 Room Air 12/17/16 22:00 92 32 158/74 92 Room Air 12/17/16 21:00 101 13 166/78 92 Room Air 12/17/16 20:00 97.3 98 6 181/74 99 Room Air 12/17/16 20:00 97 12/17/16 19:10 96 12/17/16 19:00 101 9 173/71 97 Room Air 12/17/16 18:00 96 17 163/81 97 Room Air 12/17/16 17:02 98 18 98 12/17/16 17:00 91 24 168/82 94 Room Air 12/17/16 16:47 97 139/72 12/17/16 16:44 98 12/17/16 14:03 98 Room Air 12/17/16 14:03 98.3 103 18 198/112 98 I & O 12/18/16 07:00 Intake Total 2320 ml Output Total 2800 ml Balance -480 ml General Appearance: No Apparent Distress, WD/WN HEENT: PERRL/EOMI, Pharynx Normal Neck: Full Range of Motion, Normal Inspection, Non Tender Respiratory: Chest Non Tender, Lungs Clear, Normal Breath Sounds, No Accessory Muscle Use, No Respiratory Distress Cardiovascular: Regular Rate, Rhythm, No Edema, No JVD Capillary Refill: Less Than 3 Seconds Gastrointestinal: non tender, soft Extremity: Non Tender, No Calf Tenderness, No Pedal Edema Neurologic/Psychiatric: Alert, Oriented x3, summer associate II-XII Norm as Tested Skin: Normal Color, Warm/Dry Results Lab Laboratory Tests 12/17/16 14:23 12/18/16 04:40 Assessment/Plan Assessment/Plan TIA with MS changes with dysphonia - now resolved -monitor -ASA -check echocardiogram -neuro checks currently Q8 will make them Q4 with vitals upon transfer to 4th floor. UTI with elevated LA -Continue Rocephin transfer to 4th with tele 254 Clinical Quality Measures DVT/VTE Risk/Contraindication: Risk Factor Score Per Nursin RFS Level Per Nursing on Admit: 3=High MILDRED VASQUEZ DO December 18, 2016 06:15
[2016-12-18] MEDS: LACTATED RINGERS 500 ML IV SCH ×4 (06:46→09:41)
[2016-12-18] MEDS ORDERED: LORazepam INJ 2 MG/ML (ATIVAN) VIAL IVP NR (07:30)
--- NOTE | 2016-12-18 07:51 | Diagnostic Imaging Report ---
Portable upright radiograph of the chest. INDICATION: Dyspnea. COMPARISON: 12/17/16. FINDINGS: There is cardiomegaly with minimal pulmonary vascular congestion. Some of the prominent interstitial markings appear chronic. There is minimal atelectasis suggested in the lateral left lung base. No effusion or pneumothorax. The mediastinum and you appear unremarkable. Cervical spine fusion hardware is seen. Slight increased opacity over the upper chest is probably artifactual and technique related. IMPRESSION: Cardiomegaly with minimal vascular congestion. Dictated by: Dictated on workstation # [id number]
[2016-12-18] MEDS ORDERED: PIPERACILLIN SODIUM/TAZOBACTAM 4.5 GM in NS (IVPB) 100 ML IV NR (08:00)
[2016-12-18] MEDS ORDERED: GADOBUTROL 10 MMOL/10 ML (GADAVIST) VIAL IV ONE (08:15)
[2016-12-18] MEDS: ASPIRIN 325 MG (5 GR) TABLET PO SCH (08:54)
[2016-12-18] MEDS: LACTATED RINGERS 1,000 ML IV SCH ×3 (08:58→22:32)
--- NOTE | 2016-12-18 08:59 | Diagnostic Imaging Report ---
PROCEDURE: MR imaging of the brain with and without contrast. TECHNIQUE: Multiplanar, multisequence MR imaging of the brain was performed with and without contrast. INDICATION: History of basal cell carcinoma. Confusion, headache. 9 mL of Gadovist is administered. FINDINGS: There is no diffusion restriction to suggest an acute infarct or other diffusion abnormality. There are periventricular and deep white matter T2 hyperintense lesions compatible with chronic microvascular ischemic changes. This is not associated with mass effect or postcontrast enhancement to suggest other pathology. There is no hydrocephalus. No extra-axial fluid collection or enhancing mass. The central vascular flow-voids appear grossly unremarkable. The pituitary gland is normal in size. No hypothalamic or pineal region mass. The internal auditory canals and inner ear structures appear unremarkable. There is mucosal thickening noted in the nasal mucosa and turbinates and minimal mucosal thickening in the mid ethmoidal air cells. There is evidence of prior scalp resection from the posterior central parietal region. No underlying enhancing mass is identified. IMPRESSION: No acute infarct or enhancing mass. Dictated by: Dictated on workstation # [id number]
[2016-12-18] MEDS ORDERED: meTOproloL SUCCINATE 50 MG (TOPROL XL) TAB PO SCH (09:00)
[2016-12-18] MEDS ORDERED: GLIM4TAB PO (10:10)
[2016-12-18] MEDS ORDERED: METF-478 PO (10:10)
[2016-12-18] MEDS ORDERED: METO-333 PO (10:10)
--- NOTE | 2016-12-18 10:43 | History & Physical-Hospitalist ---
HPI History of Present Illness: HPI/Chief Complaint CC: Slurred speech with malignant HTN urgency w/ sepsis from UTI HPI: This is an 86-year-old white female clinic patient of Dr. Dickinson'jose that presented to the emergency room after an abrupt onset of slurred speech. She was found to have significantly elevated blood pressure in the emergency room found to have sepsis with UTI and workup ensued for stroke protocol. CT Scan showed no evidence of hemorrhagic stroke and hypertension was managed by IV labetalol which actually resolved the slurred speech once the blood pressure was under control but had another event while she was waiting to go upstairs to the ICU with recurrent slurred speech due to elevated blood pressure so she was labeled as hypertensive urgency with slurred speech and neurological deficit with sepsis and UTI. Her MRI that was done this morning is negative for infarct so she will not follow the stroke protocol since this is been ruled out. Source: patient Exam Limitations: no limitations Date Seen 12/18/16 Attending Physician Malorie Finn DO PCP Taiwo Dickinson DO Referring Physician Date of Admission December 17, 2016 at 15:45 Home Medications & Allergies Home Medications Reviewed patient Home Medication Reconciliation Form Allergies Allergies Coded Allergies No Known Drug Allergies (Unverified12/17/16) Past Qhyhfoy-Jimbqh-Rtaksk Hx Patient Social History Employed/Student: retired Alcohol Use: Denies Use Recreational Drug Use: No Smoking Status: Never a Smoker Physical Abuse Screen: No Sexual Abuse: No Recent Foreign Travel: No Contact w/other who traveled: No Recent Hopitalizations: No Recent Infectious Disease Expo: No Immunizations Up To Date Date of Pneumonia Vaccine: Jul 02, 2016 Seasonal Allergies Seasonal Allergies: No Surgeries HX Surgeries: Yes Surgeries: Abdominal, Appendectomy, Eye Surgery, Gallbladder, Hysterectomy, Orthopedic Respiratory Hx Respiratory Disorders: No Cardiovascular Hx Cardiovascular Disorders: Yes Cardiac Disorders: Hypertension Neurological Hx Neurological Disorders: No Reproductive System : No Hx Reproductive Disorders: No Sexually Transmitted Disease: No Genitourinary Hx Genitourinary Disorders: Yes (INCONTINENCE) Genitourinary Disorders: Bladder Infection Gastrointestinal Hx Gastrointestinal Disorders: No Musculoskeletal Hx Musculoskeletal Disorders: Yes Endocrine Hx Endocrine Disorders: Yes Endocrine Disorders: Diabetes, Non-Insulin dep Blood Transfusions Hx Blood Disorders: No Reviewed Nursing Assessment Reviewed/Agree w Nursing PMH: Yes Family Medical History Significant Family History: No Pertinent Family Hx Review of Systems Constitutional: see HPI EENTM: no symptoms reported Respiratory: no symptoms reported Cardiovascular: no symptoms reported Gastrointestinal: no symptoms reported Genitourinary: no symptoms reported Musculoskeletal: no symptoms reported Skin: no symptoms reported Psychiatric/Neurological: Other (slurred speech resolved now) Physical Exam Physical Exam Vital Signs Vital Sign - Last 12Hours 12/17/16 14:03 Temp 98.3 Pulse 103 Resp 18 B/P (MAP) 198/112 Pulse Ox 98 O2 Delivery Room Air Capillary Refill : Less Than 3 Seconds General Appearance: No Apparent Distress, WD/WN, Chronically ill, Obese Eyes: Bilateral Eye Normal Inspection, Bilateral Eye PERRL HEENT: PERRL/EOMI, Normal ENT Inspection, Pharynx Normal Neck: Full Range of Motion, Normal Inspection, Non Tender, Supple, Carotid Bruit Respiratory: Chest Non Tender, Lungs Clear, Normal Breath Sounds, No Accessory Muscle Use, No Respiratory Distress Cardiovascular: Regular Rate, Rhythm, No Edema, No Gallop, No JVD, No Murmur, Normal Peripheral Pulses Gastrointestinal: Normal Bowel Sounds, No Organomegaly, No Pulsatile Mass, Non Tender, Soft Back: Normal Inspection, No CVA Tenderness, No Vertebral Tenderness Extremity: Normal Capillary Refill, Normal Inspection, Normal Range of Motion, Non Tender, No Calf Tenderness, No Pedal Edema Neurologic/Psychiatric: Alert, Oriented x3, No Motor/Sensory Deficits, Normal Mood/Affect Skin: Normal Color, Warm/Dry Lymphatic: No Adenopathy Results Results/Procedures Lab Laboratory Tests 12/17/16 14:23 12/18/16 04:40 Assessment/Plan Admission Diagnosis Assessment: Slurred speech with neurological deficit negative for stroke with CT scan and MRI and normal carotid ultrasound so deficits were caused by malignant hypertension Sepsis with UTI Hyperlipidemia Assessment and Plan Plan: Maintain Zosyn for UTI and strep and blood culture Monitor closely and follow blood pressure Likely will discharge tomorrow Clinical Quality Measures DVT/VTE Risk/Contraindication: Risk Factor Score Per Nursin RFS Level Per Nursing on Admit: 3=High MALORIE FINN DO December 18, 2016 10:43
--- NOTE | 2016-12-18 13:28 | Consultation-Cardiology ---
HPI-Cardiology Cardiology Consultation: Date of Consultation 12/18/16 Date of Admission 12/17/16 Attending Physician Malorie Finn DO Admitting Physician Taiwo Dickinson DO Consulting Physician JORDIN LAND MD, FACP, FACC, [facility] [place] CCDS Physician requesting consult: Dr Finn HPI: Chief Complaint: Reason for consultation: hypertension 86 yo woman admitted to Dr Finn on 12/17/16 after she had presented with mental status changes. A stroke w/u in ER was negative. Lactic acid was elevated. There was evidence of UTI. BP at presentation was markedly elevated. She does not currently report cp or palp or syncope or ankle swelling History was obtained from the patient and from her daughter who was by her bedside Review of Systems-Cardiology Review of Systems Constitutional: malaise Eyes: No vision change Ears/Nose/Throat: No ear discharge, No nasal drainage Respiratory: As described under HPI Cardiovascular: As described under HPI Gastrointestinal: No diarrhea, No nausea, No vomiting Genitourinary: No hematuria Musculoskeletal: back pain (chronic) Skin: No rash, No ulcerations Psychiatric/Neurological: As described under HPI Hematologic: No bleeding abnormalities All Other Systems Reviewed Negative Unless Noted: Yes YUX-Ojmjjs-Yeavbr Hx Patient Social History Employed/Student: retired Alcohol Use: Denies Use Recreational Drug Use: No Smoking Status: Never a Smoker Recent Foreign Travel: No Recent Infectious Disease Expo: No Hospitalization with Isolation: Denies Physical Abuse Screen: No Sexual Abuse: No Immunizations Up To Date Date of Pneumonia Vaccine: Jul 02, 2016 Past Medical History PMH As described under Assessment. Family Medical History Family Medical History: No fam h/o early CAD Allergies and Home Medications Allergies Coded Allergies: No Known Drug Allergies (Unverified , 12/17/16) Home Medications Glimepiride 4 Mg Tablet, 4 MG PO BID, (Reported) Metformin HCl 500 Mg Tab.er.24, 1,000 MG PO BID, (Reported) TAKES 2 (500MG) TABLETS Metoprolol Tartrate 25 Mg Tablet, 25 MG PO DAILY, (Reported) Physical Exam-Cardiology Physical Exam Vital Signs/I&O Vital Sign - Last 12Hours 12/18/16 12/18/16 12/18/16 12/18/16 02:00 03:00 04:00 04:00 Temp 99.3 Pulse 89 87 90 Resp 11 15 18 B/P (MAP) 140/71 152/75 130/67 Pulse Ox 99 94 95 98 O2 Delivery Room Air Room Air Room Air 12/18/16 12/18/16 12/18/16 12/18/16 05:00 06:00 07:00 07:00 Pulse 86 82 81 79 Resp 17 14 10 B/P (MAP) 138/73 126/51 143/71 Pulse Ox 95 96 O2 Delivery Room Air Room Air Room Air 12/18/16 12/18/16 12/18/16 12/18/16 07:00 08:00 09:00 10:38 Temp 98.6 98.6 96.0 Pulse 80 82 Resp 14 16 B/P (MAP) 127/66 164/76 Pulse Ox 98 97 O2 Delivery Room Air Room Air 12/18/16 12:37 Temp 96.2 Pulse 70 Resp 14 B/P (MAP) 181/78 Pulse Ox 97 O2 Delivery Room Air Intake and Output 12/18/16 00:00 Intake Total 1920 ml Output Total 1300 ml Balance 620 ml Capillary Refill : Less Than 3 Seconds Constitutional: well-developed, well-nourished, other (somnolent, but arousable , and responds appropriately) HEENT: EOMI, hearing is well preserved, No xanthelasmas are seen Neck: carotid pulses are 2 + bilaterally, with good upstrokes Respiratory: No accessory muscle use, lungs clear to auscultation Cardiovascular: regular rate-rhythm, S1 and S2, systolic murmur (faint JULISSA at card base) Gastrointestinal: No tender, soft, No guarding, No rebound, audible bowel sounds Extremities: No clubbing, No cyanosis, No significant edema Neurologic/Psychiatric: other (responds appropriately and moves all limbs equally) Skin: No rash on exposed areas, No ulcerations on exposed areas Data Review Labs Laboratory Tests 12/17/16 14:15: Glucometer 190H 12/17/16 14:23: White Blood Count 5.4, Red Blood Count 4.18L, Hemoglobin 13.7, Hematocrit 39, Mean Corpuscular Volume 93, Mean Corpuscular Hemoglobin 33, Mean Corpuscular Hemoglobin Concent 35, Red Cell Distribution Width 12.4, Platelet Count 151, Mean Platelet Volume 11.0H, Neutrophils (%) (Auto) 47, Lymphocytes (%) (Auto) 41 , Monocytes (%) (Auto) 8, Eosinophils (%) (Auto) 4, Basophils (%) (Auto) 1, Neutrophils # (Auto) 2.5, Lymphocytes # (Auto) 2.2, Monocytes # (Auto) 0.4, Eosinophils # (Auto) 0.2, Basophils # (Auto) 0.0, Sodium Level 137, Potassium Level 4.1, Chloride Level 103, Carbon Dioxide Level 24, Anion Gap 10, Blood Urea Nitrogen 8, Creatinine 0.76, Estimat Glomerular Filtration Rate > 60, BUN/ Creatinine Ratio 11, Glucose Level 206H, Calcium Level 9.2, Total Bilirubin 0.5 , Aspartate Amino Transf (AST/SGOT) 44H, Alanine Aminotransferase (ALT/SGPT) 39 , Alkaline Phosphatase 68, Troponin I < 0.30, Total Protein 6.6, Albumin 3.7 12/17/16 14:38: Prothrombin Time 12.5, INR Comment 1.0, Activated Partial Thromboplast Time 30, D-Dimer 0.66H 12/17/16 14:43: Urine Color YELLOW, Urine Clarity CLEAR, Urine pH 6, Urine Specific [place] 1.010L, Urine Protein 1+H, Urine Glucose (UA) 2+H, Urine Ketones NEGATIVE, Urine Nitrite NEGATIVE, Urine Bilirubin NEGATIVE, Urine Urobilinogen NORMAL, Urine Leukocyte Esterase 2+H, Urine RBC (Auto) NEGATIVE, Urine RBC NONE, Urine WBC 5-10H, Urine Squamous Epithelial Cells NONE, Urine Crystals NONE, Urine Bacteria LARGEH, Urine Casts NONE, Urine Mucus NEGATIVE, Urine Culture Indicated YES 12/17/16 15:44: Lactic Acid Level 2.89*H 12/17/16 16:27: Glucometer 194H 12/17/16 17:29: Glucometer 164H 12/17/16 18:51: Lactic Acid Level 2.62*H 12/17/16 20:58: Lactic Acid Level 2.96*H 12/17/16 22:07: Glucometer 185H 12/18/16 01:49: Glucometer 94 12/18/16 04:40: Lactic Acid Level 2.18*H, White Blood Count 7.7, Red Blood Count 4.06L, Hemoglobin 13.3, Hematocrit 38, Mean Corpuscular Volume 93, Mean Corpuscular Hemoglobin 33, Mean Corpuscular Hemoglobin Concent 35, Red Cell Distribution Width 12.5, Platelet Count 207, Mean Platelet Volume 10.9H, Neutrophils (%) ( Auto) 71, Lymphocytes (%) (Auto) 20, Monocytes (%) (Auto) 8, Eosinophils (%) ( Auto) 1, Basophils (%) (Auto) 0, Neutrophils # (Auto) 5.5, Lymphocytes # (Auto) 1.6, Monocytes # (Auto) 0.6, Eosinophils # (Auto) 0.1, Basophils # (Auto) 0.0, Sodium Level 138, Potassium Level 4.0, Chloride Level 104, Carbon Dioxide Level 21, Anion Gap 13, Blood Urea Nitrogen 6L, Creatinine 0.63, Estimat Glomerular Filtration Rate > 60, BUN/Creatinine Ratio 10, Glucose Level 124H, Calcium Level 8.6, Phosphorus Level 3.6, Magnesium Level 1.8, Total Bilirubin 0.8, Aspartate Amino Transf (AST/SGOT) 39H, Alanine Aminotransferase (ALT/SGPT) 32, Alkaline Phosphatase 68, Total Protein 6.0L, Albumin 3.4 12/18/16 06:43: Lactic Acid Level 1.57 12/18/16 12:03: Glucometer 109 Microbiology 12/17/16 Blood Culture - Preliminary, Resulted Streptococcus Species See Comments 12/17/16 Urine Culture - Preliminary, Resulted Gram Negative Dejuan Enterococcus Species Laboratory Tests 12/17/16 14:23 12/18/16 04:40 A/P-Cardiology Assessment/Admission Diagnosis Mental status changes and impaired speech, probably due to UTI with sepsis and/ or malignant hypertension Hypertension DM II Elev BMI of approx 39 Discussion and Recomendations * I had a detailed discussion with her and her daughter this am * For better control of bp, we are increasing beta-benito * F/u lab work is advised * Echo is advised * F/u on UTI, sepsis, mental status changes, impaired speech, and other medical issues is with Dr Finn Clinical Quality Measures DVT/VTE Risk/Contraindication: Risk Factor Score Per Nursin RFS Level Per Nursing on Admit: 3=High JORDIN LAND MD FACP FAC CCDS December 18, 2016 13:28
[2016-12-18] MEDS ORDERED: meTOproloL SUCCINATE 50 MG (TOPROL XL) TAB PO NR (13:30)
[2016-12-18] MEDS: PIPERACILLIN SODIUM/TAZOBACTAM 4.5 GM in NS (IVPB) 100 ML IV SCH ×2 (14:17→22:01)
[2016-12-19] VITALS: BP 150/85
[2016-12-19] MEDS: ACETAMINOPHEN 500 MG TAB (TYLENOL) PO PRN (03:33)
[2016-12-19 04:00] VITALS: BP 142/74
[2016-12-19] MEDS: PIPERACILLIN SODIUM/TAZOBACTAM 4.5 GM in NS (IVPB) 100 ML IV SCH (05:46)
[2016-12-19] MEDS: inSUlin (REGULAR) HUMAN 1 UNIT/0.01 ML (CHARGE PER UNIT) SC SCH ×2 (05:46→13:24)
[2016-12-19 06:12] LABS: BASOPHILS # (AUTO) 0.1 10^3/uL (0.0-0.1); BASOPHILS % (AUTO) 1 % (0-10); EOSINOPHILS # (AUTO) 0.3 10^3/uL (0.0-0.3); EOSINOPHILS % (AUTO) 5 % (0-10); LYMPHOCYTES # (AUTO) 2.4 X 10^3 (1.0-4.0); LYMPHOCYTES % (AUTO) 41 % (12-44); MEAN CORPUSCULAR HEMOGLOBIN 33 PG (25-34); MEAN CORPUSCULAR HGB CONC 35 G/DL (32-36); MEAN CORPUSCULAR VOLUME 94 FL (80-99); MEAN PLATELET VOLUME 10.9 FL (7.4-10.4); MONOCYTES # (AUTO) 0.6 X 10^3 (0.0-1.0); MONOCYTES % (AUTO) 11 % (0-12); NEUTROPHILS # (AUTO) 2.5 X 10^3 (1.8-7.8); NEUTROPHILS % (AUTO) 43 % (42-75); PLATELET COUNT 145 10^3/uL (130-400); RED BLOOD COUNT 3.69 10^6/uL (4.35-5.85); RED CELL DISTRIBUTION WIDTH 12.5 % (10.0-14.5); WHITE BLOOD COUNT 5.9 10^3/uL (4.3-11.0)
[2016-12-19 06:33] LABS: ALANINE AMINOTRANSFERASE 28 U/L (0-55); ALBUMIN 3.1 G/DL (3.2-4.5); ANION GAP 11 MMOL/L (5-14); ASPARTATE AMINO TRANSFERASE 36 U/L (5-34); BILIRUBIN,TOTAL 0.7 MG/DL (0.1-1.0); BLOOD UREA NITROGEN 11 MG/DL (7-18); BUN/CREATININE RATIO 15; CALCIUM 8.4 MG/DL (8.5-10.1); CARBON DIOXIDE 21 MMOL/L (21-32); CHLORIDE 110 MMOL/L (98-107); CREATININE SERUM 0.72 MG/DL (0.60-1.30); GFR ESTIMATED > 60; GLUCOSE 122 MG/DL (70-105); PHOSPHORUS 4.3 MG/DL (2.3-4.7); POTASSIUM 4.4 MMOL/L (3.6-5.0); SODIUM 142 MMOL/L (135-145); TOTAL PROTEIN 5.3 G/DL (6.4-8.2)
[2016-12-19] MEDS: LACTATED RINGERS 1,000 ML IV SCH (06:46)
[2016-12-19 06:52] LABS: THYROID STIMULATING HORMONE 1.97 UIU/ML (0.35-4.94)
[2016-12-19 08:00] VITALS: BP 149/88
[2016-12-19] MEDS: meTOproloL SUCCINATE 50 MG (TOPROL XL) TAB PO SCH ×2 (08:22→08:28)
[2016-12-19] MEDS: ASPIRIN 325 MG (5 GR) TABLET PO SCH (08:22)
--- NOTE | 2016-12-19 10:20 | Diagnostic Imaging Report ---
INDICATION: Dyspnea. TECHNIQUE: Single view chest 4:57 AM. CORRELATION STUDY: 12/18/2016 FINDINGS: Heart size enlarged and mediastinum is prominent. Vasculature is increased since prior study. Mildly prominent interstitial markings. May be minimal atelectasis of the lung bases without significant infiltrate. Cervical spinal fusion hardware is present. IMPRESSION: 1. Stable heart size with vascularity increased since prior study. Dictated by: Dictated on workstation # [id number]
[2016-12-19] MEDS ORDERED: NITR-65 PO (11:40)
[2016-12-19] MEDS ORDERED: METO-272 PO (11:40)
--- NOTE | 2016-12-19 11:41 | Discharge Summary-Hospitalist ---
Diagnosis/Chief Complaint Date of Admission December 17, 2016 at 15:45 Date of Discharge Discharge Date: December 19, 2016 Admission Diagnosis Assessment: Slurred speech with neurological deficit negative for stroke with CT scan and MRI and normal carotid ultrasound so deficits were caused by malignant hypertension Sepsis with UTI Hyperlipidemia Discharge Diagnosis Assessment: Slurred speech with neurological deficit negative for stroke with CT scan and MRI and normal carotid ultrasound so deficits were caused by malignant hypertension along with sepsis from resistant-type UTI Hyperlipidemia DM Plan: Maintain Zosyn for UTI and strep and blood culture Monitor closely and follow blood pressure Likely will discharge tomorrow Reason Hospital Visit/Course CC: Slurred speech with malignant HTN urgency w/ sepsis from UTI HPI: This is an 86-year-old white female clinic patient of Dr. Dickinson's that presented to the emergency room after an abrupt onset of slurred speech. She was found to have significantly elevated blood pressure in the emergency room found to have sepsis with UTI and workup ensued for stroke protocol. CT Scan showed no evidence of hemorrhagic stroke and hypertension was managed by IV labetalol which actually resolved the slurred speech once the blood pressure was under control but had another event while she was waiting to go upstairs to the ICU with recurrent slurred speech due to elevated blood pressure so she was labeled as hypertensive urgency with slurred speech and neurological deficit with sepsis and UTI. Her MRI that was done this morning is negative for infarct so she will not follow the stroke protocol since this is been ruled out. Note from 12/19/16:\ Patient doing much better and daughter is at the bedside Ready to go home I did mention the fact that may be urology could help prevent this type of UTI infection and she will talk to Dr. Dickinson about that I appreciate cardiology assistance with blood pressure medication choice No fever, vital signs stable, pleasant Regular rate and rhythm, clear to all sedation bilaterally Assessment: Slurred speech with neurological deficit negative for stroke with CT scan and MRI and normal carotid ultrasound so deficits were caused by malignant hypertension along with sepsis from resistant-type UTI Hyperlipidemia DM Hospital course: Patient had a brief hospital course she was placed in the ICU due to recurrence of slurred speech but that was found to be due to malignant hypertension along with sepsis from UTI. MRI and CT scan of the brain and carotid ultrasound ruled out any type of acute stroke and she was deemed stable for transfer to the floor while maintaining antibiotic coverage for UTI. She will go home today in stable condition follow-up with Dr. Dickinson this coming week and will go home on increased dose of metoprolol and Macrobid. Discharge Summary Discharge Physical Examination Allergies: Coded Allergies: No Known Drug Allergies (Unverified , 12/17/16) Vitals & I&Os Vital Signs Date Time Temp Pulse Resp B/P (MAP) Pulse Ox O2 Delivery O2 Flow Rate FiO2 12/19/16 08:00 98.0 86 20 149/88 96 Room Air Hospital Course Labs (last 24 hrs) Laboratory Tests 12/18/16 12:03: Glucometer 109 12/18/16 16:05: Glucometer 126H 12/18/16 21:40: Glucometer 206H 12/19/16 05:40: Glucometer 122H 12/19/16 06:05: White Blood Count 5.9, Red Blood Count 3.69L, Hemoglobin 12.0, Hematocrit 35, Mean Corpuscular Volume 94, Mean Corpuscular Hemoglobin 33, Mean Corpuscular Hemoglobin Concent 35, Red Cell Distribution Width 12.5, Platelet Count 145, Mean Platelet Volume 10.9H, Neutrophils (%) (Auto) 43, Lymphocytes (%) (Auto) 41 , Monocytes (%) (Auto) 11, Eosinophils (%) (Auto) 5, Basophils (%) (Auto) 1, Neutrophils # (Auto) 2.5, Lymphocytes # (Auto) 2.4, Monocytes # (Auto) 0.6, Eosinophils # (Auto) 0.3, Basophils # (Auto) 0.1, Sodium Level 142, Potassium Level 4.4, Chloride Level 110H, Carbon Dioxide Level 21, Anion Gap 11, Blood Urea Nitrogen 11, Creatinine 0.72, Estimat Glomerular Filtration Rate > 60, BUN/ Creatinine Ratio 15, Glucose Level 122H, Calcium Level 8.4L, Phosphorus Level 4.3, Magnesium Level 2.0, Total Bilirubin 0.7, Aspartate Amino Transf (AST/SGOT ) 36H, Alanine Aminotransferase (ALT/SGPT) 28, Alkaline Phosphatase 59, Total Protein 5.3L, Albumin 3.1L, Thyroid Stimulating Hormone (TSH) 1.97 12/19/16 10:35: Glucometer 219H Microbiology 12/17/16 Blood Culture - Preliminary, Resulted Nonenterococcus (Chains Cocci) See Comments 12/17/16 MRSA Screen - Final, Complete MRSA not isolated 12/17/16 Urine Culture - Final, Complete Escherichia Coli Enterococcus Faecalis Pending Labs Laboratory Tests 12/19/16 05:40: Glucometer 122 12/19/16 06:05: White Blood Count 5.9, Red Blood Count 3.69, Hemoglobin 12.0, Hematocrit 35, Mean Corpuscular Volume 94, Mean Corpuscular Hemoglobin 33, Mean Corpuscular Hemoglobin Concent 35, Red Cell Distribution Width 12.5, Platelet Count 145, Mean Platelet Volume 10.9, Neutrophils (%) (Auto) 43, Lymphocytes (%) (Auto) 41 , Monocytes (%) (Auto) 11, Eosinophils (%) (Auto) 5, Basophils (%) (Auto) 1, Neutrophils # (Auto) 2.5, Lymphocytes # (Auto) 2.4, Monocytes # (Auto) 0.6, Eosinophils # (Auto) 0.3, Basophils # (Auto) 0.1, Sodium Level 142, Potassium Level 4.4, Chloride Level 110, Carbon Dioxide Level 21, Anion Gap 11, Blood Urea Nitrogen 11, Creatinine 0.72, Estimat Glomerular Filtration Rate > 60, BUN/ Creatinine Ratio 15, Glucose Level 122, Calcium Level 8.4, Phosphorus Level 4.3 , Magnesium Level 2.0, Total Bilirubin 0.7, Aspartate Amino Transf (AST/SGOT) 36 , Alanine Aminotransferase (ALT/SGPT) 28, Alkaline Phosphatase 59, Total Protein 5.3, Albumin 3.1, Thyroid Stimulating Hormone (TSH) 1.97 12/19/16 10:35: Glucometer 219 Discharge Home Medications: Active Scripts Active Macrobid 100 mg Capsule (Nitrofurantoin Monohyd/M-Cryst) 100 Mg Capsule 1 Tab PO BID Metoprolol Succinate 50 Mg Tab.er.24h 100 Mg PO DAILY Reported Metoprolol Tartrate 25 Mg Tablet 25 Mg PO DAILY Glimepiride 4 Mg Tablet 4 Mg PO BID Metformin HCl ER (Metformin HCl) 500 Mg Tab.er.24 1,000 Mg PO BID TAKES 2 (500MG) TABLETS Instructions to patient/family Please see electonic discharge instructions given to patient. Clinical Quality Measures DVT/VTE Risk/Contraindication: Risk Factor Score Per Nursin RFS Level Per Nursing on Admit: 3=High FREDIS DAO DO December 19, 2016 11:41
--- NOTE | 2016-12-19 12:06 | Progress Note-Cardiology ---
Cardiology SOAP Progress Note Subjective: No cp or palp or syncope or focal weakness. Feels well and wishes to go home Objective: I&O/Vital Signs Vital Sign - Last 12Hours 12/19/16 12/19/16 12/19/16 12/19/16 01:00 04:00 07:00 08:00 Temp 96.5 98.0 Pulse 72 73 74 86 Resp 18 20 B/P (MAP) 142/74 149/88 Pulse Ox 98 96 O2 Delivery Room Air Room Air Intake and Output 12/19/16 00:00 Intake Total 2410 ml Output Total 1450 ml Balance 960 ml Weight (Pounds): 201 Weight (Ounces): 3.2 Weight (Calculated Kilograms): 91.966168 Constitutional: AAO x 3, well-developed, well-nourished Respiratory: No accessory muscle use, lungs clear to auscultation Cardiovascular: regular rate-rhythm, S1 and S2, systolic murmur (faint JULISSA at card base) Gastrointestional: No tender, soft, No guarding, No rebound, audible bowel sounds Extremities: No clubbing, No cyanosis, No significant edema Neurologic/Psychiatric: oriented x 3 Skin: No rash on exposed areas, No ulcerations on exposed areas Results/Procedures: Labs Laboratory Tests 12/18/16 12:03: Glucometer 109 12/18/16 16:05: Glucometer 126H 12/18/16 21:40: Glucometer 206H 12/19/16 05:40: Glucometer 122H 12/19/16 06:05: White Blood Count 5.9, Red Blood Count 3.69L, Hemoglobin 12.0, Hematocrit 35, Mean Corpuscular Volume 94, Mean Corpuscular Hemoglobin 33, Mean Corpuscular Hemoglobin Concent 35, Red Cell Distribution Width 12.5, Platelet Count 145, Mean Platelet Volume 10.9H, Neutrophils (%) (Auto) 43, Lymphocytes (%) (Auto) 41 , Monocytes (%) (Auto) 11, Eosinophils (%) (Auto) 5, Basophils (%) (Auto) 1, Neutrophils # (Auto) 2.5, Lymphocytes # (Auto) 2.4, Monocytes # (Auto) 0.6, Eosinophils # (Auto) 0.3, Basophils # (Auto) 0.1, Sodium Level 142, Potassium Level 4.4, Chloride Level 110H, Carbon Dioxide Level 21, Anion Gap 11, Blood Urea Nitrogen 11, Creatinine 0.72, Estimat Glomerular Filtration Rate > 60, BUN/ Creatinine Ratio 15, Glucose Level 122H, Calcium Level 8.4L, Phosphorus Level 4.3, Magnesium Level 2.0, Total Bilirubin 0.7, Aspartate Amino Transf (AST/SGOT ) 36H, Alanine Aminotransferase (ALT/SGPT) 28, Alkaline Phosphatase 59, Total Protein 5.3L, Albumin 3.1L, Thyroid Stimulating Hormone (TSH) 1.97 12/19/16 10:35: Glucometer 219H Microbiology 12/17/16 Blood Culture - Preliminary, Resulted Nonenterococcus (Chains Cocci) See Comments 12/17/16 MRSA Screen - Final, Complete MRSA not isolated 12/17/16 Urine Culture - Final, Complete Escherichia Coli Enterococcus Faecalis Laboratory Tests 12/17/16 14:23 12/18/16 04:40 12/19/16 06:05 A/P: Assessment: Mental status changes and impaired speech on 12/17/16, probably due to UTI with sepsis and/or malignant hypertension, now resolved Hypertension Echo of 12/18/16: LVEF 65%, mild MR, triv TR, mild diastolic dysfunction of LV, no valvular stenosis, PASP approx 25 mmHg DM II Elev BMI of approx 39 Plan: * I had a detailed discussion with her and explained to her the rationale for changes in bp in regimen and pros and cons and possible side effect * I have reviewed the echo results * I have advised outpatient Card f/u and maintenance of bp log at home JORDIN LAND MD FACP [facility] CCD December 19, 2016 12:06
[2016-12-19 13:35] VITALS: BP 148/88
--- NOTE | 2016-12-19 13:59 | ECHOCARDIOGRAPHY REPORT ---
DATE OF SERVICE: 12/18/2016 ECHOCARDIOGRAPHY REPORT CLINICAL DIAGNOSES: Hypertension, hypertensive encephalopathy. MEASUREMENTS: LV diameter, diastolic, 4.6. IVS thickness, diastolic, 1.1. LVPW thickness, diastolic, 0.9. Aortic root 2.9. Left atrium 4. DESCRIPTION: Two-dimensional echocardiography shows normal global left ventricular systolic function with normal regional wall motion. Aortic, mitral and tricuspid valve leaflets show good leaflet excursion. There is no significant pericardial effusion. Doppler imaging shows trivial tricuspid regurgitation. Pulmonary artery systolic pressure is estimated to be approximately 25 mmHg. There is no Doppler evidence of any significant valvular stenosis. Doppler imaging shows mild mitral regurgitation. Mitral inflow is consistent with grade 1 diastolic dysfunction of the left ventricle. There is no evidence of significant intracardiac shunt on this transthoracic echocardiographic study. Inferior vena cava appears to be minimally dilated, but does exhibit inspiratory collapse. CONCLUSIONS: 1. Normal global left ventricular systolic function with ejection fraction approximately 65%. 2. Mild mitral regurgitation. 3. Trivial tricuspid regurgitation. 4. Pulmonary artery systolic pressure is estimated at approximately 25 mmHg. 5. Mild diastolic dysfunction of the left ventricle with no evidence of any significant valvular stenosis. Job ID: [id number] DocumentID: [id number] Dictated Date: 12/19/2016 11:34:39 South Asian History Professor Date: 12/19/2016 12:06:00 Dictated By: JORDIN LAND MD, MA, FACP, FACC,
== END 2016-12-19 13:35 | disposition home or self-care (01) | DRG 872 ==
LOC: EDUNIT# 14:03 → ER 14:05 → ICU 15:45 → 4TH 12-18 09:36
PROVIDERS: ADMIT Internal Medicine; ATTEND Internal Medicine
DX: A40.9 Streptococcal sepsis, unspecified (principal); N39.0 Urinary tract infection, site not specified; I16.0 Hypertensive urgency; I67.4 Hypertensive encephalopathy; E11.9 Type 2 diabetes mellitus without complications; E66.9 Obesity, unspecified; Z68.39 Body mass index [BMI] 39.0-39.9, adult; E78.5 Hyperlipidemia, unspecified; R32 Unspecified urinary incontinence; Z79.84 Long term (current) use of oral hypoglycemic drugs
CPT/HCPCS: 36415; 51702; 70450; 70553; 71010; 80053; 81000; 82962; 83605; 83735; 84100; 84443; 84484; 85025; 85379; 85610; 85730; 87040; 87077; 87081; 87088; 87186; 93005; 93041; 93306; 93880; 96365; 96374

== ENCOUNTER 2017-05-10 09:25 | Outpatient (RCR) | payer MEDICARE, OTHER ==
[2017-05-03 09:18] LABS: BASOPHILS # (AUTO) 0.1 10^3/uL (0.0-0.1); BASOPHILS % (AUTO) 2 % (0-10); EOSINOPHILS # (AUTO) 0.1 10^3/uL (0.0-0.3); EOSINOPHILS % (AUTO) 3 % (0-10); HEMATOCRIT 37 % (35-52); HEMOGLOBIN 12.9 G/DL (11.5-16.0); LYMPHOCYTES % (AUTO) 48 % (12-44); MEAN CORPUSCULAR HEMOGLOBIN 32 PG (25-34); MEAN CORPUSCULAR HGB CONC 35 G/DL (32-36); MEAN CORPUSCULAR VOLUME 94 FL (80-99); MEAN PLATELET VOLUME 10.7 FL (7.4-10.4); MONOCYTES # (AUTO) 0.5 X 10^3 (0.0-1.0); MONOCYTES % (AUTO) 12 % (0-12); NEUTROPHILS # (AUTO) 1.4 X 10^3 (1.8-7.8); NEUTROPHILS % (AUTO) 34 % (42-75); PLATELET COUNT 188 10^3/uL (130-400); RED BLOOD COUNT 3.99 10^6/uL (4.35-5.85); RED CELL DISTRIBUTION WIDTH 12.4 % (10.0-14.5); WHITE BLOOD COUNT 4.1 10^3/uL (4.3-11.0)
[2017-05-03 09:57] LABS: ALANINE AMINOTRANSFERASE 33 U/L (0-55); ALBUMIN 3.8 GM/DL (3.2-4.5); ALKALINE PHOSPHATASE 78 U/L (40-136); BILIRUBIN,TOTAL 0.6 MG/DL (0.1-1.0); BUN/CREATININE RATIO 10; CALCIUM 9.4 MG/DL (8.5-10.1); CARBON DIOXIDE 25 MMOL/L (21-32); CHLORIDE 99 MMOL/L (98-107); CREATININE SERUM 0.73 MG/DL (0.60-1.30); GFR ESTIMATED > 60; GLUCOSE 198 MG/DL (70-105); POTASSIUM 4.1 MMOL/L (3.6-5.0); SODIUM 137 MMOL/L (135-145)
[~2017-05-10 09:25] MED LIST changes: +GLIM4TAB PO; +METF-478 PO; +METO-333 PO; +METO-370 PO; +NITR-65 PO
== END 2017-08-01 | disposition home or self-care (01) ==
LOC: ONC 09:25
PROVIDERS: ATTEND Internal Medicine Hematology & Oncology
DX: D50.9 Iron deficiency anemia, unspecified (principal); E11.9 Type 2 diabetes mellitus without complications; I10 Essential (primary) hypertension; E66.9 Obesity, unspecified; Z68.41 Body mass index [BMI] 40.0-44.9, adult; Z79.899 Other long term (current) drug therapy
CPT/HCPCS: 36415; 80053; 82728; 85025; 99213

== ENCOUNTER 2017-10-28 12:55 | Outpatient (CLI) | payer MEDICARE, OTHER ==
[~2017-10-28] VITALS: Ht 152.4 cm; Wt 86.6 kg
[2017-10-28 13:05] VITALS: BP 159/69
[2017-10-28] MEDS ORDERED: METH1TAB21 PO (13:13)
[2017-10-28] MEDS ORDERED: METO-387 PO (13:13)
[2017-10-28 13:52] LABS: BASOPHILS # (AUTO) 0.1 10^3/uL (0.0-0.1); BASOPHILS % (AUTO) 1 % (0-10); EOSINOPHILS # (AUTO) 0.2 10^3/uL (0.0-0.3); EOSINOPHILS % (AUTO) 5 % (0-10); HEMATOCRIT 39 % (35-52); HEMOGLOBIN 13.7 G/DL (11.5-16.0); LYMPHOCYTES # (AUTO) 2.3 X 10^3 (1.0-4.0); LYMPHOCYTES % (AUTO) 49 % (12-44); MEAN CORPUSCULAR HEMOGLOBIN 32 PG (25-34); MEAN CORPUSCULAR HGB CONC 35 G/DL (32-36); MEAN CORPUSCULAR VOLUME 92 FL (80-99); MEAN PLATELET VOLUME 10.8 FL (7.4-10.4); MONOCYTES # (AUTO) 0.5 X 10^3 (0.0-1.0); MONOCYTES % (AUTO) 10 % (0-12); NEUTROPHILS # (AUTO) 1.7 X 10^3 (1.8-7.8); NEUTROPHILS % (AUTO) 36 % (42-75); PLATELET COUNT 157 10^3/uL (130-400); RED BLOOD COUNT 4.24 10^6/uL (4.35-5.85); RED CELL DISTRIBUTION WIDTH 12.1 % (10.0-14.5); WHITE BLOOD COUNT 4.7 10^3/uL (4.3-11.0)
--- NOTE | 2017-10-28 14:03 | Diagnostic Imaging Report ---
INDICATION: Preoperative evaluation. COMPARISON: 12/19/2016 FINDINGS: Two views of the chest are obtained. Heart size is normal. The pulmonary vessels appear unremarkable. There is no pneumothorax, mediastinal widening or pleural fluid. Chronic findings of COPD are unchanged. Lungs are otherwise clear. There are degenerative and postoperative changes in the spine. IMPRESSION: No acute abnormality is seen. No interval change from the prior study. Dictated by: Dictated on workstation # [id number]
[2017-10-28 14:12] LABS: BUN/CREATININE RATIO 13; CALCIUM 9.1 MG/DL (8.5-10.1); CARBON DIOXIDE 25 MMOL/L (21-32); CHLORIDE 103 MMOL/L (98-107); CREATININE SERUM 0.71 MG/DL (0.60-1.30); GFR ESTIMATED > 60; GLUCOSE 200 MG/DL (70-105); POTASSIUM 4.2 MMOL/L (3.6-5.0); SODIUM 137 MMOL/L (135-145)
== END 2017-10-28 13:45 | disposition home or self-care (01) ==
LOC: PREOP 12:55
PROVIDERS: ATTEND Obstetrics & Gynecology
DX: Z01.810 Encounter for preprocedural cardiovascular examination (principal); Z01.811 Encounter for preprocedural respiratory examination; Z01.812 Encounter for preprocedural laboratory examination; Z11.2 Encounter for screening for other bacterial diseases; N81.2 Incomplete uterovaginal prolapse
CPT/HCPCS: 36415; 71046; 80048; 85025; 86850; 86900; 86901; 87081; 93005

== ENCOUNTER 2017-11-02 07:15 | Inpatient (IN) | payer MEDICARE, OTHER ==
--- NOTE | 2017-11-01 14:53 | History & Physical-Surgical ---
HPO-Surgical History of Present Illness Chief Complaint: Incomplete vaginal prolapse, failed conservative treatment, vaginal fissure. Diagnosis/Surgical Indication: Incomplete vaginal prolapse, vaginal fissure Procedure: Enterocele repair, colpocleisis Date of Surgery: Nov 02, 2017 Weight (Pounds): 201 Weight (Ounces): 3.2 Height (Feet): 5 Height (Inches): 0.00 Allergies and Home Medications Allergies Coded Allergies: No Known Drug Allergies (Unverified , 12/17/16) Home Medications Glimepiride 4 Mg Tablet, 4 MG PO BID, (Reported) Metformin HCl 500 Mg Tab.er.24, 1,000 MG PO BID, (Reported) TAKES 2 (500MG) TABLETS Methenamine Hippurate 1 Gm Tablet, 1 GM PO BID, (Reported) Metoprolol Succinate 25 Mg Tab.er.24h, 25 MG PO DAILY, (Reported) Patient Home Medication List Home Medication List Reviewed: Yes Past Jhsehur-Qjtpkd-Ebezal Hx Patient Social History Marrital Status: Number of Children: 7 Number of living children: 7 Employed/Student: retired Alcohol Use: Denies Use Recreational Drug Use: No Smoking Status: Never a Smoker Recent Foreign Travel: No Contact w/other who traveled: No Recent Hopitalizations: No Immunizations Up To Date Tetanus Booster (TDap): Unknown Date of Pneumonia Vaccine: Jul 02, 2016 Seasonal Allergies Seasonal Allergies: No Surgeries Yes Abdominal, Appendectomy, Eye Surgery, Gallbladder, Hysterectomy (DANIELA), Orthopedic Respiratory No Cardiovascular Yes Hypertension Neurological No Reproductive System Hx Reproductive Disorders: No Sexually Transmitted Disease: No Genitourinary No Bladder Infection (history of recurrent UTIs on suppressive treatment) Gastrointestinal No Musculoskeletal Yes Endocrine History of Endocrine Disorders: Yes Endocrine Disorders: Diabetes, Non-Insulin dep Integumentary History of Skin or Integumenta: No Blood Transfusions History of Blood Disorders: No Family Medical History Significant Family History: No Pertinent Family Hx Family Hx: Asthma G8 SISTER Cardiovascular disease 19 MOTHER Completed stroke 19 FATHER Diabetes mellitus G8 SISTER Hypertension 19 MOTHER Respiratory disorder G8 BROTHER Exam Vital Signs 152/82 weight 191 Capillary Refill : General Appearance: Alert, Oriented X3 HEENT: Atraumatic Respiratory: Clear to Auscultation, Normal Air Movement Cardiovascular: Regular Rate, No Murmurs Abdominal: Normal Bowel Sounds Psych/Mental Status: Mental Status NL Assessment/Plan Assessment and Plan Enterocele Incomplete vaginal prolapse vaginal fissure Failed conservative treatment Plan: Vaginal enterocele repair and colpocleisis, with pubovaginal sling Consents signed. Risks of bleeding, infection, injury to bowel bladder and ureter. NPO after midnight except beta benito with sip of water. Take her Hypoglycemics the evening before if she takes them then. Prophylactic SCDs and antibiotics. Ancef and Flagyl Problems: YARELY SWANSON DO Nov 01, 2017 14:52
[~2017-11-02] VITALS: Ht 152.4 cm; Wt 86.6 kg
[~2017-11-02 07:15] MED LIST changes: +METH1TAB21 PO; +METO-387 PO
[2017-11-02] MEDS ORDERED: metroNIDAZOLE 500MG/100ML IVPB 100 ML IV ONE ×2 (07:45)
[2017-11-02] MEDS ORDERED: ceFAZolin INJECTION 1,000 MG in NS (IVPB) 100 ML IV ONE (07:45)
[2017-11-02] MEDS ORDERED: ceFAZolin 1 GM/NS 100 ML IVPB IV ONE ×2 (07:45)
[2017-11-02] MEDS ORDERED: LIDOCAINE PF 2% 5 ML (XYLOCAINE) VIAL ONE (08:15)
[2017-11-02] MEDS ORDERED: proPOfol 200 MG/20 ML (DIPRIVAN) VIAL IV ONE (08:15)
[2017-11-02] MEDS ORDERED: ONDANSETRON 4 MG/2 ML (SDV) Z0FRAN ONE (08:15)
[2017-11-02] MEDS ORDERED: SEVOFLURANE (ULTANE) 15 ML INHAL SOLN ONE ×8 (08:15→10:37)
[2017-11-02] MEDS ORDERED: fentaNYL INJECTION 100 MCG/2 ML AMP ONE ×2 (08:16→10:10)
--- NOTE | 2017-11-02 08:22 | Progress Note-Pre Operative ---
Pre-Operative Progress Note H&P Reviewed The H&P was reviewed, patient examined and no changes noted. Date Seen by Provider: Nov 02, 2017 Time Seen by Provider: 08:20 Date H&P Reviewed: Nov 02, 2017 Time H&P Reviewed: 08:00 Pre-Operative Diagnosis: incomplete vaginal prolapse, enterocele, vaginal fissure. YARELY SWANSON DO Nov 02, 2017 08:22
[2017-11-02] MEDS: LACTATED RINGERS 1,000 ML IV PRN ×2 (08:24→09:40)
[2017-11-02 08:28] VITALS: BP 160/79
[2017-11-02] MEDS ORDERED: BUP/EPI 0.5% 1:200,000 (SENSORCAINE) 30 ML VIAL ONE (08:29)
[2017-11-02] MEDS ORDERED: NS (IVPB) 100 ML ONE (08:29)
[2017-11-02] MEDS ORDERED: VASOPRESSIN INJECTION 20 UNIT/ML VIAL ONE (08:29)
[2017-11-02] MEDS ORDERED: ESTROGENS CONJ. CREAM 30 GM (PREMARIN) TUBE ONE (08:29)
[2017-11-02] MEDS: TRIAMCINOLONE 0.1% CR (KENALOG) 80 GM TUBE TP SCH (10:30)
[2017-11-02] MEDS ORDERED: KETOROLAC 30 MG/ML VIAL ONE (10:34)
[2017-11-02] MEDS ORDERED: KETOROLAC 15 MG/ML VIAL IVP ONE (10:45)
[2017-11-02] MEDS ORDERED: HYDROcodone/APAP 5 MG/325 MG (LORTAB) TAB PO PRN (10:45)
[2017-11-02] MEDS ORDERED: PATIENT MAY USE OWN MEDS, ALL MC SCH (10:45)
[2017-11-02] MEDS ORDERED: BENZOCAINE/MENTHOL (DERMOPLAST) 56 ML CAN TP PRN (10:45)
[2017-11-02] MEDS ORDERED: morphine INJ 10 MG/ML 1ML (SYR OR VIAL) IV PRN (10:45)
--- NOTE | 2017-11-02 10:48 | Operative Report ---
Operative Report Date of Procedure/Surgery Nov 02, 2017 Surgeon (s) YARELY SWANSON DO [employer] Supervisor (s): FREDDIE Barakat Post-Operative Diagnosis Same Procedure Performed vaginal enterocele repair, colpocleisis perineorrhaphy Description of Procedure Anesthesia Type: General Estimated blood loss (mL): 125 Specimen(s) collected/removed none Description of the Procedure With informed consent patient was taken to the operating room where general anesthetic was found to be adequate. She was prepped and draped in the usual sterile fashion in the dorsal lithotomy position taking care to protect her bilateral hips with history of hip replacement. A Anthony catheter was placed in the bladder. We drained approximately 500 mL of cloudy urine, and therefore a sterile specimen was sent for culture. At this point, the [place] retractor was placed and stitched into place. I now identified the enterocele the enterocele was contiguous with the anterior vaginal wall as well as the posterior indicating there may have been a portion of the rectocele. In addition it appears that she has had some sort of anterior vaginal repair. Her urethra is very well supported and there is a midline healed incision. She has not reported any previous history of vaginal surgery. Her hysterectomy was a total abdominal hysterectomy for an abdominal mass that was benign. At this point I injected the posterior vaginal mucosa with dilute vasopressin and then made a small incision in the perineum. I then dissected the posterior vaginal epithelium off of the rectus fascia. I was able to dissect this up to the vaginal cuff. And then I dissected laterally. At this point a now recognized that there was a large enterocele though it appeared to be more fatty tissue then bowel. I attempted to enter the enterocele sac but it was very adherent to the underlying tissue so I did not enter the sac. Instead I reduce this and then sutured around the defect while reducing the abdominal contents. I did a pursestring stitch of 0 Ethibond and then a second pursestring stitch of the same suture. At this point I now proceeded with colpocleisis. I removed a rectangular portion of the anterior vaginal wall and removed the posterior vaginal tissue as well that had been previously dissected. I now closed to the vaginal vault with interrupted sutures of 2-0 Vicryl approximating the anterior and posterior vaginal wall together. And this closed the vaginal vault up to the bladder neck. The urethra again was very well supported. The the pubovesical fascia was progressively plicated anteriorly and the perirectal fascia posteriorly with Lembert inverting sutures of 2-0 Vicryl. When this suture is tied, a tunnel is created along each lateral margin for drainage of cervical mucus, thereby preventing the formation of mucocele. Several sutures are placed in a similar manner to complete the tunnel. The vaginal vault is now 3 cm x 3 cm. A perineorrhaphy was now done. I injected the perineum with dilute vasopressin and then incised the perineum with a scalpel and removed a pyramidal section I then plicated the perineum with interrupted 2-0 Vicryl and then closed with 3-0 Vicryl in a running locked fashion. the patient was awakened and taken to the recovery room in stable fashion. Sponge, lap, needle and instrument counts correct times two. Findings of the Procedure LArge enterocele (to introitus Good support of sling and bladder Large perineorophhy Allergies and Home Medications Allergies Coded Allergies: No Known Drug Allergies (Unverified , 12/17/16) Home Medications Acetaminophen 500 Mg Tablet, 1,000 MG PO Q4H Prescribed by: YARELY SWANSON on 11/03/17 0852 Amoxicillin 875 Mg Tablet, 875 MG PO BID Prescribed by: YARELY SWANSON on 11/03/17 0902 Docusate Sodium 100 Mg Capsule, 100 MG PO BID Prescribed by: YARELY SWANSON on 11/03/17 0852 Glimepiride 4 Mg Tablet, 4 MG PO BID, (Reported) Metformin HCl 500 Mg Tab.er.24, 1,000 MG PO BID, (Reported) TAKES 2 (500MG) TABLETS Methenamine Hippurate 1 Gm Tablet, 1 GM PO BID, (Reported) Metoprolol Succinate 25 Mg Tab.er.24h, 25 MG PO DAILY, (Reported) Patient Home Medication List Home Medication List Reviewed: Yes YARELY SWANSON DO Nov 02, 2017 10:48
[2017-11-02] MEDS ORDERED: ONDANSETRON 4 MG/2 ML (SDV) Z0FRAN IVP PRN (11:00)
[2017-11-02] MEDS: LACTATED RINGERS 1,000 ML IV SCH ×3 (11:03→22:36)
[2017-11-02] MEDS: inSUlin ASPART (NovoLOG) 1 UNIT/0.01 ML (CHARGE PER UNIT) SC SCH ×2 (11:05→21:21)
[2017-11-02] MEDS ORDERED: morphine INJ 10 MG/ML 1ML (SYR OR VIAL) ONE (11:08)
[2017-11-02] MEDS: morphine INJ 10 MG/ML 1ML (SYR OR VIAL) IVP PRN ×3 (11:12→11:24)
[2017-11-02 12:04] VITALS: BP 144/77
[2017-11-02] MEDS: ONDANSETRON 4 MG/2 ML (SDV) Z0FRAN IV PRN ×2 (12:41→18:59)
[2017-11-02] MEDS ORDERED: morphine INJ 4 MG/ML 1 ML (VIAL/SYRINGE) IV PRN (13:15)
[2017-11-02 13:40] VITALS: BP 134/67
--- NOTE | 2017-11-02 13:43 | Anesthesia-General Post-Op ---
General Patient Condition Mental Status/LOC: Same as Preop Cardiovascular: Satisfactory Nausea/Vomiting: Absent Respiratory: Satisfactory Pain: Controlled Complications: Absent Post Op Complications Complications None Follow Up Care/Instructions Patient Instructions None needed. Anesthesia/Patient Condition Patient Condition Patient is doing well, no complaints, stable vital signs, no apparent adverse anesthesia problems. No complications reported per nursing. SEAMUS BALTAZAR CRNA Nov 02, 2017 13:43
[2017-11-02] MEDS ORDERED: KETOROLAC 15 MG/ML VIAL IVP PRN (16:45)
[2017-11-02 17:40] VITALS: BP 166/89
[2017-11-02] MEDS: GLIMEPIRIDE 4 MG (AMARYL) TAB PO SCH (18:04)
[2017-11-02] MEDS: metFORMIN 500 MG (GLUCOPHAGE) TAB PO SCH (18:04)
[2017-11-02 21:00] VITALS: BP 149/76
[2017-11-03 00:44] VITALS: BP 145/79
[2017-11-03 05:00] VITALS: BP 141/69
[2017-11-03] MEDS: inSUlin ASPART (NovoLOG) 1 UNIT/0.01 ML (CHARGE PER UNIT) SC SCH (05:55)
[2017-11-03] MEDS: LACTATED RINGERS 1,000 ML IV SCH (06:34)
[2017-11-03 08:15] VITALS: BP 141/75
[2017-11-03] MEDS ORDERED: AMOXICILLIN 500 MG (POLYMOX) CAP PO NR (08:52)
[2017-11-03] MEDS ORDERED: DOCU100C37 PO (08:52)
[2017-11-03] MEDS ORDERED: ACET-2267 PO (08:52)
--- NOTE | 2017-11-03 08:55 | Discharge Inst-Women's Service ---
Discharge Inst-Women's Serv Depart Medication/Instructions New, Converted or Re-Newed RX: Transmitted to Pharmacy (May use tylenol for pain as needed. Rx transmitted but they are OTC) Instructions apply cream bid to buttocks. Ambulate at least 4 times daily May shower expect bleeding (light or spotting) for up to 2 weeks Final Diagnosis incomplete vaginal prolapse enterocele diabetes hypertension pressure sore vs contact dermatitis Consults/Follow Up Additional Follow Up: Yes (1-2 weeks with Amanuel) Activity Activity: Activity as Tolerated Driving Instructions: No Driving for 1 Week NO SMOKING: NO SMOKING Nothing Inside Vagina: No Douching, No [place], No Tampons Other Activity nothing in the vagina ever keep stools soft void every 4 hours and as needed. Make sure to void prior to going to bed Diet Discharge Diet: No Restrictions Symptoms to Report to : Bleeding Excessive, Pain Increased, Urine Color Change, Fever Over 101 Degrees F, Vaginal Bleeding Increase, Cramps in Feet or Legs, Vaginal Discharge Foul For Any Problems or Questions: Contact Your Physician Skin/Wound Care Infection Signs and Symptoms: Increased Redness, Foul Odor of Wound, Increased Drainage, Skin Itchy or Has a Rash, Increased Swelling, Temperature Above 101 F Operative Area Clean and Dry: Keep Incision Clean/Dry Stitches/[place]/Dermabond: Care of Stitches Bathing Instructions: YARELY Gallegos DO Nov 03, 2017 08:55
[2017-11-03] MEDS ORDERED: DOCUSATE SODIUM 100 MG (COLACE) CAP PO SCH (09:00)
[2017-11-03] MEDS ORDERED: AMOX875T2 PO (09:02)
[2017-11-03] MEDS: GLIMEPIRIDE 4 MG (AMARYL) TAB PO SCH (09:48)
[2017-11-03] MEDS ORDERED: IBUPROFEN 600 MG (MOTRIN) TAB PO ONE (09:48)
[2017-11-03] MEDS: metFORMIN 500 MG (GLUCOPHAGE) TAB PO SCH (09:49)
[2017-11-03] MEDS: ONDANSETRON 4 MG/2 ML (SDV) Z0FRAN IV PRN (09:55)
[2017-11-03] MEDS: TRIAMCINOLONE 0.1% CR (KENALOG) 80 GM TUBE TP SCH (09:57)
[2017-11-03] MEDS ORDERED: cefTRIAXone INJECTION 1,000 MG in NS (IVPB) 100 ML IV NR (10:00)
--- NOTE | 2017-11-03 11:38 | Progress Note-Standard ---
Standard Progress Note Progress Notes/Assess & Plan Date Seen by Provider: Nov 03, 2017 Time Seen by Provider: 10:15 Progress/Assessment & Plan Stragith cath at surgery YARELY SWANSON DO Nov 03, 2017 11:38 am
[2017-11-03 12:40] VITALS: BP 160/83
[2017-11-03] MEDS ORDERED: AMOXICILLIN 500 MG (POLYMOX) CAP PO SCH (13:00)
--- NOTE | 2017-11-03 14:40 | Anesthesia-General Post-Op ---
General Patient Condition Mental Status/LOC: Same as Preop Cardiovascular: Satisfactory Nausea/Vomiting: Absent Respiratory: Satisfactory Pain: Controlled Complications: Absent Post Op Complications Complications None Follow Up Care/Instructions Patient Instructions None needed. Anesthesia/Patient Condition Patient Condition Patient is doing well, no complaints, stable vital signs, no apparent adverse anesthesia problems. No complications reported per nursing. JORDAN BUSTOS CRNA Nov 03, 2017 14:40
[2017-11-04] MEDS ORDERED: ENOXAPARIN 40 MG/0.4 ML (LOVENOX) SYR SC SCH (09:00)
== END 2017-11-03 12:40 | disposition home or self-care (01) | DRG 747 ==
LOC: 4TH 07:15 → SURG 07:16 → WS 12:03
PROVIDERS: ADMIT Obstetrics & Gynecology; ATTEND Obstetrics & Gynecology
PROC: 0JQC3ZZ Repair Pelvic Region Subcutaneous Tissue and Fascia, Percutaneous Approach (ICD-10-PCS; 2017-11-02)
PROC: 0WQNXZZ Repair Female Perineum, External Approach (ICD-10-PCS; 2017-11-02)
PROC: 0UQF7ZZ Repair Cul-de-sac, Via Natural or Artificial Opening (ICD-10-PCS; principal; 2017-11-02 08:49)
DX: N81.10 Cystocele, unspecified (principal); N81.5 Vaginal enterocele; I10 Essential (primary) hypertension; E11.9 Type 2 diabetes mellitus without complications; Z79.84 Long term (current) use of oral hypoglycemic drugs
CPT/HCPCS: 82962; 86850; 86900; 86901; 87077; 87088; 87186; 94664

== ENCOUNTER → 2018-04-18 | Outpatient (CLI) | payer MEDICARE, OTHER ==
[~2018-04-18] MED LIST changes: +ACET-2267 PO; +AMOX875T2 PO; +DOCU100C37 PO
[2018-04-18 14:16] LABS: ALANINE AMINOTRANSFERASE 33 U/L (0-55); ALBUMIN 3.9 GM/DL (3.2-4.5); ALKALINE PHOSPHATASE 69 U/L (40-136); BILIRUBIN,TOTAL 0.6 MG/DL (0.1-1.0); BUN/CREATININE RATIO 18; CALCIUM 9.7 MG/DL (8.5-10.1); CARBON DIOXIDE 28 MMOL/L (21-32); CHLORIDE 104 MMOL/L (98-107); CREATININE SERUM 0.72 MG/DL (0.60-1.30); GFR ESTIMATED > 60; GLUCOSE 107 MG/DL (70-105); POTASSIUM 3.9 MMOL/L (3.6-5.0); SODIUM 141 MMOL/L (135-145)
== END ==
LOC: LAB 13:45
PROVIDERS: ATTEND Surgery
DX: E11.622 Type 2 diabetes mellitus with other skin ulcer (principal); L98.411 Non-pressure chronic ulcer of buttock limited to breakdown of skin; L22 Diaper dermatitis; E66.01 Morbid (severe) obesity due to excess calories
CPT/HCPCS: 36415; 80053

== ENCOUNTER → 2018-04-18 | Outpatient (CLI) | payer MEDICARE, OTHER | LOC: WOUNDCARE 12:14 | PROVIDERS: ATTEND Surgery | DX: E11.622 Type 2 diabetes mellitus with other skin ulcer (principal); L98.411 Non-pressure chronic ulcer of buttock limited to breakdown of skin; L22 Diaper dermatitis; E66.01 Morbid (severe) obesity due to excess calories; Z68.41 Body mass index [BMI] 40.0-44.9, adult | CPT/HCPCS: 99213 ==

== ENCOUNTER → 2018-04-25 | Outpatient (CLI) | payer MEDICARE, OTHER | LOC: WOUNDCARE 12:20 | PROVIDERS: ATTEND Surgery | DX: E11.622 Type 2 diabetes mellitus with other skin ulcer (principal); L98.411 Non-pressure chronic ulcer of buttock limited to breakdown of skin; L22 Diaper dermatitis; E66.01 Morbid (severe) obesity due to excess calories; Z68.41 Body mass index [BMI] 40.0-44.9, adult | CPT/HCPCS: 99212 ==

== ENCOUNTER 2018-05-18 09:22 | Outpatient (RCR) | payer MEDICARE, OTHER ==
[2018-05-11 11:10] LABS: BASOPHILS # (AUTO) 0.1 10^3/uL (0.0-0.1); BASOPHILS % (AUTO) 1 % (0-10); EOSINOPHILS # (AUTO) 0.1 10^3/uL (0.0-0.3); EOSINOPHILS % (AUTO) 2 % (0-10); HEMATOCRIT 38 % (35-52); HEMOGLOBIN 13.3 G/DL (11.5-16.0); LYMPHOCYTES % (AUTO) 37 % (12-44); MEAN CORPUSCULAR HEMOGLOBIN 32 PG (25-34); MEAN CORPUSCULAR HGB CONC 35 G/DL (32-36); MEAN CORPUSCULAR VOLUME 93 FL (80-99); MEAN PLATELET VOLUME 10.6 FL (7.4-10.4); MONOCYTES # (AUTO) 0.5 X 10^3 (0.0-1.0); MONOCYTES % (AUTO) 9 % (0-12); NEUTROPHILS # (AUTO) 2.7 X 10^3 (1.8-7.8); NEUTROPHILS % (AUTO) 51 % (42-75); PLATELET COUNT 215 10^3/uL (130-400); RED BLOOD COUNT 4.11 10^6/uL (4.35-5.85); RED CELL DISTRIBUTION WIDTH 12.5 % (10.0-14.5); WHITE BLOOD COUNT 5.3 10^3/uL (4.3-11.0)
[2018-05-11 11:35] LABS: ALANINE AMINOTRANSFERASE 39 U/L (0-55); ALKALINE PHOSPHATASE 79 U/L (40-136); BILIRUBIN,TOTAL 0.6 MG/DL (0.1-1.0); BUN/CREATININE RATIO 15; CALCIUM 9.4 MG/DL (8.5-10.1); CARBON DIOXIDE 24 MMOL/L (21-32); CHLORIDE 104 MMOL/L (98-107); CREATININE SERUM 0.75 MG/DL (0.60-1.30); GFR ESTIMATED > 60; GLUCOSE 178 MG/DL (70-105); POTASSIUM 4.1 MMOL/L (3.6-5.0); SODIUM 139 MMOL/L (135-145)
[2018-06-10] MEDS ORDERED: CIPR-225 PO (12:05)
== END 2018-08-09 | disposition home or self-care (01) ==
LOC: ONC 09:22
PROVIDERS: ATTEND Internal Medicine Hematology & Oncology
DX: D50.9 Iron deficiency anemia, unspecified (principal); E11.9 Type 2 diabetes mellitus without complications; I10 Essential (primary) hypertension; E66.9 Obesity, unspecified; Z68.41 Body mass index [BMI] 40.0-44.9, adult; Z79.899 Other long term (current) drug therapy
CPT/HCPCS: 36415; 80053; 82728; 85025; 99213

== ENCOUNTER 2018-06-10 09:13 | Emergency (ER) | payer MEDICARE, OTHER ==
[~2018-06-10] VITALS: Ht 162.6 cm; Wt 83.9 kg
[2018-06-10 09:32] LABS: BASOPHILS % (AUTO) 1 % (0-10); EOSINOPHILS # (AUTO) 0.1 10^3/uL (0.0-0.3); EOSINOPHILS % (AUTO) 2 % (0-10); HEMATOCRIT 41 % (35-52); LYMPHOCYTES # (AUTO) 1.9 X 10^3 (1.0-4.0); LYMPHOCYTES % (AUTO) 36 % (12-44); MEAN CORPUSCULAR HEMOGLOBIN 33 PG (25-34); MEAN CORPUSCULAR HGB CONC 35 G/DL (32-36); MEAN CORPUSCULAR VOLUME 94 FL (80-99); MEAN PLATELET VOLUME 10.5 FL (7.4-10.4); MONOCYTES # (AUTO) 0.6 X 10^3 (0.0-1.0); MONOCYTES % (AUTO) 11 % (0-12); NEUTROPHILS # (AUTO) 2.6 X 10^3 (1.8-7.8); NEUTROPHILS % (AUTO) 51 % (42-75); PLATELET COUNT 177 10^3/uL (130-400); RED BLOOD COUNT 4.31 10^6/uL (4.35-5.85); RED CELL DISTRIBUTION WIDTH 12.7 % (10.0-14.5); WHITE BLOOD COUNT 5.2 10^3/uL (4.3-11.0)
[2018-06-10 09:56] LABS: ALANINE AMINOTRANSFERASE 28 U/L (0-55); ALBUMIN 4.2 GM/DL (3.2-4.5); ALKALINE PHOSPHATASE 72 U/L (40-136); BILIRUBIN,TOTAL 0.7 MG/DL (0.1-1.0); BUN/CREATININE RATIO 12; CALCIUM 9.7 MG/DL (8.5-10.1); CARBON DIOXIDE 23 MMOL/L (21-32); CHLORIDE 104 MMOL/L (98-107); CREATININE SERUM 0.73 MG/DL (0.60-1.30); GFR ESTIMATED > 60; GLUCOSE 159 MG/DL (70-105); POTASSIUM 4.2 MMOL/L (3.6-5.0); SODIUM 138 MMOL/L (135-145); TOTAL PROTEIN 7.5 GM/DL (6.4-8.2)
[2018-06-10 09:58] LABS: BILIRUBIN,URINE NEGATIVE (NEGATIVE); CLARITY,URINE CLEAR; COLOR,URINE YELLOW; GLUCOSE, URINE (UA) NEGATIVE (NEGATIVE); KETONES,URINE NEGATIVE (NEGATIVE); LEUKOCYTE ESTERASE ,URINE 3+ (NEGATIVE); NITRITE,URINE NEGATIVE (NEGATIVE); PH,URINE 6 (5-9); PROTEIN,URINE 2+ (NEGATIVE); UROBILINOGEN,URINE NORMAL (NORMAL)
[2018-06-10 10:08] LABS: BACTERIA,URINE MODERATE /HPF; SQUAMOUS EPITHELIAL CELL,UR RARE /HPF; WBC,URINE 50-100 /HPF
--- NOTE | 2018-06-10 12:00 | ED General ---
General Chief Complaint: Neurological Problems Stated Complaint: STROKE SYMPTOMS Nursing Triage Note: THE PT STATES THAT SHE HAD SOME TROUBLE SPEAKING THIS AM. THE SYMPTOMS HAVE GONE ON ARRIVAL. NO OTHER COMPLAINTS. Nursing Sepsis Screen: No Definite Risk Source of Information: Patient Exam Limitations: No Limitations History of Present Illness Date Seen by Provider: Jun 10, 2018 Time Seen by Provider: 11:53 Initial Comments The patient is an 88-year-old white female known to me for many years. 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 She presented here with these symptoms and was placed on the stroke protocols. CT scan was ordered however she refused stating this is happened before and was related to her urinary tract infection. She now feels perfectly normal Timing/Duration: 1-3 Hours Associated Systoms: Other (repeated urinary tract infections. She recently completed a course of cefuroxime. She states that she was then advanced to a once a day prophylaxis by her urologist. I cannot prove that that would guess this with Macrobid.) Allergies and Home Medications Allergies Coded Allergies: No Known Drug Allergies (Unverified , 12/17/16) Home Medications Acetaminophen 500 Mg Tablet, 1,000 MG PO Q4H Prescribed by: YARELY SWANSON on 11/03/17 0852 Amoxicillin 875 Mg Tablet, 875 MG PO BID Prescribed by: YARELY SWANSON on 11/03/17 0902 Docusate Sodium 100 Mg Capsule, 100 MG PO BID Prescribed by: YARELY SWANSON on 11/03/17 0852 Glimepiride 4 Mg Tablet, 4 MG PO BID, (Reported) Metformin HCl 500 Mg Tab.er.24, 1,000 MG PO BID, (Reported) TAKES 2 (500MG) TABLETS Methenamine Hippurate 1 Gm Tablet, 1 GM PO BID, (Reported) Metoprolol Succinate 25 Mg Tab.er.24h, 25 MG PO DAILY, (Reported) Patient Home Medication List Home Medication List Reviewed: Yes Review of Systems Review of Systems Constitutional: see HPI EENTM: no symptoms reported Respiratory: no symptoms reported Cardiovascular: no symptoms reported Gastrointestinal: no symptoms reported Genitourinary: no symptoms reported Musculoskeletal: no symptoms reported Skin: no symptoms reported Psychiatric/Neurological: No Symptoms Reported Hematologic/Lymphatic: No Symptoms Reported Immunological/Allergic: no symptoms reported Past Sciiyuf-Aofhcc-Kchnkw Hx Patient Social History Recent Foreign Travel: No Contact w/Someone Who Travel: No Recent Infectious Disease Expo: No Recent Hopitalizations: No Physical Abuse: No Sexual Abuse: No Immunizations Up To Date Tetanus Booster (TDap): Unknown Date of Pneumonia Vaccine: Jul 02, 2016 Seasonal Allergies Seasonal Allergies: No Past Medical History Surgeries: Yes (basal cell removed from head, bilat foot sx) Abdominal, Appendectomy, Eye Surgery, Gallbladder, Hysterectomy, Orthopedic Respiratory: No Cardiac: No Hypertension Neurological: No Reproductive Disorders: No Sexually Transmitted Disease: No Genitourinary: Yes Bladder Infection Gastrointestinal: No Musculoskeletal: Yes Arthritis, Gout Endocrine: Yes Diabetes, Non-Insulin dep HEENT: Yes (glasses, cataracts removed, dentures) Loss of Vision: Bilateral Hearing Impairment: Denies Cancer: Yes Skin Psychosocial: No Integumentary: No Blood Disorders: No Family Medical History Asthma G8 SISTER Cardiovascular disease 19 MOTHER Completed stroke 19 FATHER Diabetes mellitus G8 SISTER Hypertension 19 MOTHER Respiratory disorder G8 BROTHER No Pertinent Family Hx Physical Exam Vital Signs Vital Signs - First Documented 06/10/18 09:52 Temp 98.1 Pulse 89 Resp 18 B/P (MAP) 177/89 (118) Capillary Refill : Less Than 3 Seconds Height, Weight, BMI Height: 5'4.00" Weight: 185lbs. 0.0oz. 83.720792ep; 37.3 BMI Method:Estimated General Appearance: WD/WN, Other (speech is clear and she is fully functional) Eyes: Bilateral Eye Normal Inspection, Bilateral Eye PERRL, Bilateral Eye EOMI , Bilateral Eye Abnormal EOM, Bilateral Eye Abnormal Pupil, Bilateral Eye Conjunctivae Pale, Bilateral Eye Lid Inflammation, Bilateral Eye Photophobia, Bilateral Eye Scleral Icterus, Bilateral Eye Other HEENT: Normal ENT Inspection Neck: Full Range of Motion, Normal Inspection, Non Tender, Supple, Carotid Bruit Respiratory: Chest Non Tender, Lungs Clear, Normal Breath Sounds, No Accessory Muscle Use, No Respiratory Distress Cardiovascular: Regular Rate, Rhythm, No Edema, No Gallop, No JVD, No Murmur, Normal Peripheral Pulses Gastrointestinal: Normal Bowel Sounds Back: Normal Inspection Extremity: Normal Capillary Refill Neurologic/Psychiatric: Alert Skin: Normal Color, Warm/Dry Lymphatic: No Adenopathy Progress/Results/Core Measures Suspected Sepsis Recent Fever Within 48 Hours: No Infection Criteria Present: None New/Unexplained Altered Menta: Yes Sepsis Screen: No Definite Risk SIRS Temperature:98.1 Pulse: 89 Respiratory Rate: 18 Laboratory Tests 06/10/18 09:27: White Blood Count 5.2 Blood Pressure 177 /89 Mean: 118 Laboratory Tests 06/10/18 09:27: Creatinine 0.73, Platelet Count 177, Total Bilirubin 0.7 Results/Orders Lab Results Laboratory Tests Test 06/10/18 09:27 06/10/18 09:53 Range/Units White Blood Count 5.2 4.3-11.0 10^3/uL Red Blood Count 4.31 L 4.35-5.85 10^6/uL Hemoglobin 14.0 11.5-16.0 G/DL Hematocrit 41 35-52 % Mean Corpuscular Volume 94 80-99 FL Mean Corpuscular Hemoglobin 33 25-34 PG Mean Corpuscular Hemoglobin Concent 35 32-36 G/DL Red Cell Distribution Width 12.7 10.0-14.5 % Platelet Count 177 130-400 10^3/uL Mean Platelet Volume 10.5 H 7.4-10.4 FL Neutrophils (%) (Auto) 51 42-75 % Lymphocytes (%) (Auto) 36 12-44 % Monocytes (%) (Auto) 11 0-12 % Eosinophils (%) (Auto) 2 0-10 % Basophils (%) (Auto) 1 0-10 % Neutrophils # (Auto) 2.6 1.8-7.8 X 10^3 Lymphocytes # (Auto) 1.9 1.0-4.0 X 10^3 Monocytes # (Auto) 0.6 0.0-1.0 X 10^3 Eosinophils # (Auto) 0.1 0.0-0.3 10^3/uL Basophils # (Auto) 0.0 0.0-0.1 10^3/uL Sodium Level 138 135-145 MMOL/L Potassium Level 4.2 3.6-5.0 MMOL/L Chloride Level 104 98-107 MMOL/L Carbon Dioxide Level 23 21-32 MMOL/L Anion Gap 11 5-14 MMOL/L Blood Urea Nitrogen 9 7-18 MG/DL Creatinine 0.73 0.60-1.30 MG/DL Estimat Glomerular Filtration Rate > 60 BUN/Creatinine Ratio 12 Glucose Level 159 H 70-105 MG/DL Calcium Level 9.7 8.5-10.1 MG/DL Corrected Calcium 9.5 8.5-10.1 MG/DL Total Bilirubin 0.7 0.1-1.0 MG/DL Aspartate Amino Transf (AST/SGOT) 38 H 5-34 U/L Alanine Aminotransferase (ALT/SGPT) 28 0-55 U/L Alkaline Phosphatase 72 40-136 U/L Total Protein 7.5 6.4-8.2 GM/DL Albumin 4.2 3.2-4.5 GM/DL Urine Color YELLOW Urine Clarity CLEAR Urine pH 6 5-9 Urine Specific [place] 1.010 L 1.016-1.022 Urine Protein 2+ H NEGATIVE Urine Glucose (UA) NEGATIVE NEGATIVE Urine Ketones NEGATIVE NEGATIVE Urine Nitrite NEGATIVE NEGATIVE Urine Bilirubin NEGATIVE NEGATIVE Urine Urobilinogen NORMAL NORMAL MG/DL Urine Leukocyte Esterase 3+ H NEGATIVE Urine RBC (Auto) 2+ H NEGATIVE Urine RBC 2-5 H /HPF Urine WBC 50-100 H /HPF Urine Squamous Epithelial Cells RARE /HPF Urine Crystals NONE /LPF Urine Bacteria MODERATE H /HPF Urine Casts NONE /LPF Urine Mucus NEGATIVE /LPF Urine Culture Indicated YES My Orders Orders - SUNNY WING MD Cbc With Automated Diff (06/10/18 09:19) Comprehensive Metabolic Panel (06/10/18 09:19) Ua Culture If Indicated (06/10/18 09:19) Ct Head Wo (06/10/18 09:19) Urine Culture (06/10/18 09:53) Vital Signs/I&O 06/10/18 09:52 Temp 98.1 Pulse 89 Resp 18 B/P (MAP) 177/89 (118) Capillary Refill : Less Than 3 Seconds Blood Pressure Mean: 118 Departure Communication (Admissions) UA shows pyuria. Given the recent cephalosporin treatment she will be placed on Cipro pending culture results. Impression Primary Impression: recurrent urinary tract infection Disposition: HOME, SELF-CARE Condition: Improved Departure-Patient Inst. Decision time for Depature: 12:03 Referrals: AUDREY DICKINSON DO (PCP) Primary Care Physician ARMAAN DICKINSON DNP (Family) Primary Care Physician Add. Discharge Instructions: All discharge instructions reviewed with patient and/or family. Voiced understanding. Plenty of liquids Take Cipro twice daily as directed Call Dr. Dickinson's office on Wednesday to get culture report. Scripts Ciprofloxacin HCl (Cipro) 500 Mg Tablet 500 MG PO twice a day, #20 TAB Prov: SUNNY WING MD 06/10/18 SUNNY WING MD Jun 10, 2018 12:00
[2018-06-10] MEDS ORDERED: CIPR-225 PO (12:05)
[2018-06-10 12:18] VITALS: BP 116/86
== END 2018-06-10 12:20 | disposition home or self-care (01) ==
LOC: ER 09:13 → EDUNIT# 09:13 → ER 12:20
DX: N39.0 Urinary tract infection, site not specified (principal); I10 Essential (primary) hypertension; M10.9 Gout, unspecified; E11.9 Type 2 diabetes mellitus without complications; Z87.448 Personal history of other diseases of urinary system; Z82.49 Family history of ischemic heart disease and other diseases of the circulatory system; Z79.84 Long term (current) use of oral hypoglycemic drugs; Z85.828 Personal history of other malignant neoplasm of skin; Z90.89 Acquired absence of other organs; Z90.710 Acquired absence of both cervix and uterus
CPT/HCPCS: 36415; 80053; 81000; 85025; 87077; 87088; 87186; 99283

== ENCOUNTER 2018-09-14 10:51 | Outpatient (RCR) | payer MEDICARE, OTHER ==
[~2018-09-14 10:51] MED LIST changes: +CIPR-225 PO
[2018-09-14 11:35] LABS: BASOPHILS % (AUTO) 1 % (0-10); EOSINOPHILS # (AUTO) 0.1 10^3/uL (0.0-0.3); EOSINOPHILS % (AUTO) 3 % (0-10); HEMATOCRIT 38 % (35-52); HEMOGLOBIN 13.3 G/DL (11.5-16.0); LYMPHOCYTES # (AUTO) 1.3 X 10^3 (1.0-4.0); LYMPHOCYTES % (AUTO) 32 % (12-44); MEAN CORPUSCULAR HEMOGLOBIN 32 PG (25-34); MEAN CORPUSCULAR HGB CONC 35 G/DL (32-36); MEAN CORPUSCULAR VOLUME 92 FL (80-99); MONOCYTES # (AUTO) 0.4 X 10^3 (0.0-1.0); MONOCYTES % (AUTO) 9 % (0-12); NEUTROPHILS # (AUTO) 2.3 X 10^3 (1.8-7.8); NEUTROPHILS % (AUTO) 56 % (42-75); PLATELET COUNT 161 10^3/uL (130-400); RED CELL DISTRIBUTION WIDTH 12.6 % (10.0-14.5); WHITE BLOOD COUNT 4.1 10^3/uL (4.3-11.0)
== END 2018-12-13 | disposition home or self-care (01) ==
LOC: ONC 10:51
PROVIDERS: ATTEND Internal Medicine Hematology & Oncology
DX: D50.9 Iron deficiency anemia, unspecified (principal); E11.9 Type 2 diabetes mellitus without complications; I10 Essential (primary) hypertension; E66.9 Obesity, unspecified; Z68.41 Body mass index [BMI] 40.0-44.9, adult; Z79.899 Other long term (current) drug therapy
CPT/HCPCS: 36415; 82728; 85025

== ENCOUNTER 2019-01-10 08:47 | Outpatient (RCR) | payer MEDICARE, OTHER ==
[2019-01-10 09:19] LABS: BASOPHILS # (AUTO) 0.1 10^3/uL (0.0-0.1); BASOPHILS % (AUTO) 2 % (0-10); EOSINOPHILS # (AUTO) 0.1 10^3/uL (0.0-0.3); EOSINOPHILS % (AUTO) 2 % (0-10); HEMATOCRIT 39 % (35-52); HEMOGLOBIN 13.4 G/DL (11.5-16.0); LYMPHOCYTES # (AUTO) 1.8 X 10^3 (1.0-4.0); LYMPHOCYTES % (AUTO) 44 % (12-44); MEAN CORPUSCULAR HEMOGLOBIN 32 PG (25-34); MEAN CORPUSCULAR HGB CONC 35 G/DL (32-36); MEAN CORPUSCULAR VOLUME 93 FL (80-99); MEAN PLATELET VOLUME 10.9 FL (7.4-10.4); MONOCYTES # (AUTO) 0.4 X 10^3 (0.0-1.0); MONOCYTES % (AUTO) 11 % (0-12); NEUTROPHILS # (AUTO) 1.8 X 10^3 (1.8-7.8); NEUTROPHILS % (AUTO) 42 % (42-75); PLATELET COUNT 177 10^3/uL (130-400); RED CELL DISTRIBUTION WIDTH 12.5 % (10.0-14.5); WHITE BLOOD COUNT 4.2 10^3/uL (4.3-11.0)
== END 2019-04-10 | disposition home or self-care (01) ==
LOC: ONC 08:47
PROVIDERS: ATTEND Internal Medicine Hematology & Oncology
DX: D50.9 Iron deficiency anemia, unspecified (principal); E11.9 Type 2 diabetes mellitus without complications; I10 Essential (primary) hypertension; E66.9 Obesity, unspecified; Z68.41 Body mass index [BMI] 40.0-44.9, adult; Z79.899 Other long term (current) drug therapy
CPT/HCPCS: 36415; 82728; 85025

== ENCOUNTER 2019-05-17 09:22 | Outpatient (RCR) | payer MEDICARE, OTHER ==
[2019-05-10 09:31] LABS: BASOPHILS # (AUTO) 0.1 10^3/uL (0.0-0.1); BASOPHILS % (AUTO) 1 % (0-10); EOSINOPHILS # (AUTO) 0.1 10^3/uL (0.0-0.3); EOSINOPHILS % (AUTO) 2 % (0-10); HEMATOCRIT 38 % (35-52); HEMOGLOBIN 13.5 G/DL (11.5-16.0); LYMPHOCYTES # (AUTO) 1.7 X 10^3 (1.0-4.0); LYMPHOCYTES % (AUTO) 43 % (12-44); MEAN CORPUSCULAR HEMOGLOBIN 33 PG (25-34); MEAN CORPUSCULAR HGB CONC 35 G/DL (32-36); MEAN CORPUSCULAR VOLUME 92 FL (80-99); MEAN PLATELET VOLUME 10.6 FL (7.4-10.4); MONOCYTES # (AUTO) 0.4 X 10^3 (0.0-1.0); MONOCYTES % (AUTO) 9 % (0-12); NEUTROPHILS # (AUTO) 1.8 X 10^3 (1.8-7.8); NEUTROPHILS % (AUTO) 45 % (42-75); PLATELET COUNT 189 10^3/uL (130-400); RED CELL DISTRIBUTION WIDTH 12.1 % (10.0-14.5)
[2019-05-10 10:04] LABS: ALANINE AMINOTRANSFERASE 27 U/L (0-55); ALBUMIN 3.7 GM/DL (3.2-4.5); ALKALINE PHOSPHATASE 96 U/L (40-136); BILIRUBIN,TOTAL 0.6 MG/DL (0.1-1.0); BUN/CREATININE RATIO 16; CALCIUM 9.2 MG/DL (8.5-10.1); CARBON DIOXIDE 25 MMOL/L (21-32); CHLORIDE 103 MMOL/L (98-107); CREATININE SERUM 0.75 MG/DL (0.60-1.30); GFR ESTIMATED > 60; GLUCOSE 163 MG/DL (70-105); POTASSIUM 4.4 MMOL/L (3.6-5.0); SODIUM 138 MMOL/L (135-145)
[2019-07-07] MEDS ORDERED: AMOX500C2 PO (13:13)
[2019-07-07] MEDS ORDERED: HYDR-4226 PO (13:13)
== END 2019-08-08 | disposition home or self-care (01) ==
LOC: ONC 09:22
PROVIDERS: ATTEND Internal Medicine Hematology & Oncology
DX: D50.9 Iron deficiency anemia, unspecified (principal); I10 Essential (primary) hypertension; E11.9 Type 2 diabetes mellitus without complications; E66.9 Obesity, unspecified; Z68.35 Body mass index [BMI] 35.0-35.9, adult; Z79.899 Other long term (current) drug therapy
CPT/HCPCS: 36415; 80053; 82728; 85025; 99213

== ENCOUNTER 2019-07-07 11:09 | Emergency (ER) | payer MEDICARE, OTHER ==
[~2019-07-07] VITALS: Ht 152.4 cm; Wt 81.8 kg
[~2019-07-07 11:09] MED LIST changes: -GLIM4TAB PO; +GLIM4TAB3 PO; -METO-370 PO; -METO-387 PO; +METO50TA7 PO
--- NOTE | 2019-07-07 11:53 | ED Fall/Injury ---
General Chief Complaint: Trauma-Non Activation Stated Complaint: FELL Nursing Triage Note: Pt to ED in wheelchair. Pt reports falling in the [address] parking lot. Pt reports there was a tractor blocking the walk and when pt tried to step up on the curb, pt caught foot on curb. Pt c/o L knee pain, R hand pain and has a small laceration to bridge of nose. Source: patient Exam Limitations: no limitations History of Present Illness Date Seen by Provider: Jul 07, 2019 Time Seen by Provider: 11:51 Initial Comments To ER with reports of a fall. 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 Glasses cut the bridge of her nose, abrasion to the left anterior knee, bruising to the volar surface right wrist. No loss of consciousness no headache no neck pain. No anticoagulant use Location Injury Occurred: [address] parking lot Occurred: just prior to arrival Severity: moderate Injuries/Pain Location: head, face Loss of Consciousness: no loss of consciousness Associated Symptoms (Fall): Denies Symptoms Allergies and Home Medications Allergies Coded Allergies: No Known Drug Allergies (Unverified , 12/17/16) Home Medications Acetaminophen 500 Mg Tablet, 1,000 MG PO Q4H Prescribed by: YARELY SWANSON on 11/03/17 0852 Amoxicillin 875 Mg Tablet, 875 MG PO BID Prescribed by: YARELY SWANSON on 11/03/17 0902 Ciprofloxacin HCl 500 Mg Tablet, 500 MG PO twice a day Prescribed by: SUNNY WING on 06/10/18 1205 Docusate Sodium 100 Mg Capsule, 100 MG PO BID Prescribed by: YARELY SWANSON on 11/03/17 0852 Glimepiride 4 Mg Tablet, 4 MG PO BID, (Reported) Metformin HCl 500 Mg Tab.er.24, 1,000 MG PO BID, (Reported) TAKES 2 (500MG) TABLETS Methenamine Hippurate 1 Gm Tablet, 1 GM PO BID, (Reported) Metoprolol Succinate 25 Mg Tab.er.24h, 25 MG PO DAILY, (Reported) Patient Home Medication List Home Medication List Reviewed: Yes Review of Systems Review of Systems Constitutional: see HPI Eyes: No Symptoms Reported Ears, Nose, Mouth, Throat: no symptoms reported Respiratory: no symptoms reported Cardiovascular: no symptoms reported Genitourinary: no symptoms reported Musculoskeletal: no symptoms reported Skin: no symptoms reported Psychiatric/Neurological: No Symptoms Reported Past Ajgezze-Dftyom-Zbknor Hx Patient Social History Alcohol Use: Denies Use Recreational Drug Use: No 2nd Hand Smoke Exposure: No Recent Foreign Travel: No Contact w/Someone Who Travel: No Recent Infectious Disease Expo: No Recent Hopitalizations: No Immunizations Up To Date Tetanus Booster (TDap): Unknown Date of Pneumonia Vaccine: Jul 02, 2016 Seasonal Allergies Seasonal Allergies: No Past Medical History Surgeries: Yes (basal cell removed from head, bilat foot sx) Abdominal, Appendectomy, Eye Surgery, Gallbladder, Hysterectomy, Orthopedic Respiratory: No Cardiac: Yes Hypertension Neurological: No Reproductive Disorders: No Sexually Transmitted Disease: No Genitourinary: Yes Bladder Infection Gastrointestinal: No Musculoskeletal: Yes Arthritis, Gout Endocrine: Yes Diabetes, Non-Insulin dep HEENT: Yes (glasses, cataracts removed, dentures) Loss of Vision: Bilateral Hearing Impairment: Denies Cancer: Yes Skin Psychosocial: No Integumentary: No Blood Disorders: No Family Medical History Asthma G8 SISTER Cardiovascular disease 19 MOTHER Completed stroke 19 FATHER Diabetes mellitus G8 SISTER Hypertension 19 MOTHER Respiratory disorder G8 BROTHER No Pertinent Family Hx Physical Exam Vital Signs Vital Signs - First Documented 07/07/19 11:20 Temp 36.7 Pulse 91 Resp 14 B/P (MAP) 172/90 (117) Pulse Ox 98 O2 Delivery Room Air Capillary Refill : Less Than 3 Seconds Height, Weight, BMI Height: 5'4.00" Weight: 185lbs. 0.0oz. 83.627029cr; 35.00 BMI Method:Estimated General Appearance: WD/WN, no apparent distress HEENT: PERRL/EOMI, other (small 1 cm-laceration to the very superior aspect bridge of the nose, dried blood in the right Gill, no visualized septal hematoma. cleansed with shurclens and saline, closed with dermabond. ) Neck: non-tender, full range of motion; No tender lateral, No tender midline Respiratory: chest non-tender, lungs clear, normal breath sounds, no respiratory distress, no accessory muscle use Gastrointestinal: normal bowel sounds, non tender, soft Extremities: normal range of motion, non-tender Neurologic/Psychiatric: alert, normal mood/affect, oriented x 3 Skin: normal color, warm/dry [place] Coma Score Best Eye Response: (4) Open Spontaneously Best Verbal Response: (5) Oriented Best Motor Response: (6) Obeys Commands Patty Total: 15 Progress/Results/Core Measures Results/Orders My Orders Orders - FAVIOLA LANGLEY APRN Ct Head/Face/Cervical Wo (07/07/19 11:28) Wrist, Right, 3 Views Or More (07/07/19 11:28) Knee, Left, 3 Views (07/07/19 12:05) Vital Signs/I&O 07/07/19 11:20 Temp 36.7 Pulse 91 Resp 14 B/P (MAP) 172/90 (117) Pulse Ox 98 O2 Delivery Room Air Blood Pressure Mean: 117 POS Diagnostic Imaging Diagonstic Imaging: CT Comments NAME: YOGESH OLMEDO [facility] REC#: [id number] PT STATUS: REG ER : 1930 PHYSICIAN: AFVIOLA LANGLEY APRN ADMIT DATE: 07/07/19/ER Draft POSDate of Exam:07/07/19 CT HEAD/FACE/CERVICAL WO Clinical indication: Patient fell face down in Hospital. Nose was scraped up. Patient has pain in facial area. Exam: Axial Head CT without IV contrast. Axial Maxillofacial CT scan without IV contrast with sagittal and coronal reformations. Axial CT scan of the cervical spine with sagittal and coronal reformations. Auto Exposure Controls were utilized during the CT exam to meet ALARA standards for radiation dose reduction. Comparison: Head CT without contrast dated 12/17/2016. Findings: Head CT: There is no evidence of acute cerebral infarct, intracranial hemorrhage, or gross mass effect. The brain parenchymal volume appears appropriate for patient's age. There are multiple small focal and patchy areas of low attenuation white matter changes involving both cerebral hemispheres, likely related to chronic small vessel ischemic disease. There is normal diaz-white matter distinction. There is no significant midline shift or herniation. There is no evidence of hydrocephalus. The basal cisterns are unremarkable. Maxillofacial CT: There is a mildly impacted fracture involving the frontal process of the left maxilla. There is bony irregularity of the left nasal bone and displaced fracture of the anterior aspect of the right nasal bone region related to fracture. There is soft tissue swelling adjacent to the region. There is no other skull or maxillofacial fracture seen. Paranasal sinuses are clear. Orbits and globes are intact. Mastoid air cells are clear. The extra cranial soft tissue is unremarkable. Cervical spine: There is no acute cervical spine fracture or dislocation. There is C5-C6 anterior cervical disc fusion hardware with no significant hardware complication. There is no significant vertebral bony bridging/fusion. There is suggestion of partially calcified posterior disc herniation at the C3-C4 and C4-C5 levels which cause at least mild central canal narrowing. There is at least moderate right C3-C4 neural foramen narrowing. The left submandibular gland is atrophic or surgically resected. There is a lobulated roughly 2.2 cm x 2.1 cm area of soft tissue which is just below the expected regions of the right submandibular gland. There is calcification seen within it. There is no adjacent fat stranding. This may represent the inferiorly positioned right submandibular gland. There is no other significant neck soft tissue abnormality. Calcifications of the thyroid gland bilaterally is noted. Visualized upper lung ureña are clear. Impression: 1: There are interval acute fractures of the right and left nasal bones and frontal process of the left maxilla. There is mild adjacent swelling. 2: There is no evidence of intracranial hemorrhage or other skull fracture. 3: There is no cervical spine fracture or dislocation. 4: Suspected inferiorly positioned right submandibular gland as described above. Dictated on workstation # [id number] Dict: 07/07/19 1233 Trans: 07/07/19 1250 [facility] [id number] Interpreted by: MELNIA SMITH MD Electronically signed by: Departure Impression Primary Impression: Fall Qualified Codes: W19.XXXA - Unspecified fall, initial encounter Additional Impression: Maxillary fracture Qualified Codes: S02.40DA - Maxillary fracture, left side, initial encounter for closed fracture Disposition: 01 HOME, SELF-CARE Condition: Stable Departure-Patient Inst. Decision time for Depature: 12:57 Referrals: AUDREY GAUATM DO (PCP) Primary Care Physician ARMAAN GAUTAM, DNP (Family) Primary Care Physician TATIANA BACON DDS Patient Instructions: NO INSTRUCTIONS GIVEN Add. Discharge Instructions: No blowing your nose for 2 weeks 2. If you have nasal congestion that is too bothersome you can use Afrin twice a day for no more than 3 days 3. Antibiotics as directed 4. Pain medication as directed. However this may be constipating so if you don't already then you should start taking Colace stool softener with it and increase her water intake. Call Dr. Bacon from maxillofacial surgery to make an appointment for follow-up. Return to ER for any worsening. All discharge instructions reviewed with patient and/or family. Voiced understanding. Scripts Hydrocodone/Acetaminophen ([place] 5-325 Tablet) 1 Each Tablet 1 TAB PO Q4-6HR for Pain MDD 10 TABS for 7 Days, #10 TAB Prov: FAVIOLA LANGLEY APRN 07/07/19 Amoxicillin (Amoxicillin) 500 Mg Capsule 500 MG PO TID, #21 CAP 0 Refills Prov: FAVIOLA LANGLEY APRN 07/07/19 Copy Copies To 1: AUDREY GAUTAM PETER J APRN Jul 07, 2019 11:53 POS
--- NOTE | 2019-07-07 12:26 | Diagnostic Imaging Report ---
INDICATION: Fall with right wrist injury. TIME OF EXAM: 12:11 p.m. Three views of the right wrist were obtained. There is generalized demineralization. The distal radius and ulna are intact. Carpus and metacarpals are intact. No fractures are seen. IMPRESSION: No acute bony abnormality is detected. Dictated by: Dictated on workstation # [id number]
--- NOTE | 2019-07-07 12:27 | Diagnostic Imaging Report ---
INDICATION: Fall and left knee pain. TIME OF EXAM: 12:15 p.m. Three views of the left knee were obtained. Three views of the left knee demonstrate postoperative changes of total knee arthroplasty. Prosthetic elements are in good position. No fracture or loosening is seen. There is no effusion. IMPRESSION: Postoperative changes. No acute abnormality is detected. Dictated by: Dictated on workstation # [id number]
--- NOTE | 2019-07-07 12:51 | Diagnostic Imaging Report ---
Clinical indication: Patient fell face down in Hospital. Nose was scraped up. Patient has pain in facial area. Exam: Axial Head CT without IV contrast. Axial Maxillofacial CT scan without IV contrast with sagittal and coronal reformations. Axial CT scan of the cervical spine with sagittal and coronal reformations. Auto Exposure Controls were utilized during the CT exam to meet ALARA standards for radiation dose reduction. Comparison: Head CT without contrast dated 12/17/2016. Findings: Head CT: There is no evidence of acute cerebral infarct, intracranial hemorrhage, or gross mass effect. The brain parenchymal volume appears appropriate for patient's age. There are multiple small focal and patchy areas of low attenuation white matter changes involving both cerebral hemispheres, likely related to chronic small vessel ischemic disease. There is normal diaz-white matter distinction. There is no significant midline shift or herniation. There is no evidence of hydrocephalus. The basal cisterns are unremarkable. Maxillofacial CT: There is a mildly impacted fracture involving the frontal process of the left maxilla. There is bony irregularity of the left nasal bone and displaced fracture of the anterior aspect of the right nasal bone region related to fracture. There is soft tissue swelling adjacent to the region. There is no other skull or maxillofacial fracture seen. Paranasal sinuses are clear. Orbits and globes are intact. Mastoid air cells are clear. The extra cranial soft tissue is unremarkable. Cervical spine: There is no acute cervical spine fracture or dislocation. There is C5-C6 anterior cervical disc fusion hardware with no significant hardware complication. There is no significant vertebral bony bridging/fusion. There is suggestion of partially calcified posterior disc herniation at the C3-C4 and C4-C5 levels which cause at least mild central canal narrowing. There is at least moderate right C3-C4 neural foramen narrowing. The left submandibular gland is atrophic or surgically resected. There is a lobulated roughly 2.2 cm x 2.1 cm area of soft tissue which is just below the expected regions of the right submandibular gland. There is calcification seen within it. There is no adjacent fat stranding. This may represent the inferiorly positioned right submandibular gland. There is no other significant neck soft tissue abnormality. Calcifications of the thyroid gland bilaterally is noted. Visualized upper lung ureña are clear. Impression: 1: There are interval acute fractures of the right and left nasal bones and frontal process of the left maxilla. There is mild adjacent swelling. 2: There is no evidence of intracranial hemorrhage or other skull fracture. 3: There is no cervical spine fracture or dislocation. 4: Suspected inferiorly positioned right submandibular gland as described above. Dictated by: Dictated on workstation # [id number]
[2019-07-07] MEDS ORDERED: AMOX500C2 PO (13:13)
[2019-07-07] MEDS ORDERED: HYDR-4226 PO (13:13)
[2019-07-07] MEDS ORDERED: TETANUS,DIPTH,PERTUSS P/F (BOOSTRIX) 0.5 ML VIAL IM ONE (13:15)
[2019-07-07 13:29] VITALS: BP 160/77
== END 2019-07-07 13:25 | disposition home or self-care (01) ==
LOC: EDUNIT# 11:09 → ER 11:10
DX: S02.40DA Maxillary fracture, left side, initial encounter for closed fracture (principal); I10 Essential (primary) hypertension; E11.9 Type 2 diabetes mellitus without complications; M10.9 Gout, unspecified; Z23 Encounter for immunization; Z85.828 Personal history of other malignant neoplasm of skin; Z82.49 Family history of ischemic heart disease and other diseases of the circulatory system; Z90.710 Acquired absence of both cervix and uterus; Z79.84 Long term (current) use of oral hypoglycemic drugs; Z90.49 Acquired absence of other specified parts of digestive tract; W01.10XA Fall on same level from slipping, tripping and stumbling with subsequent striking against unspecified object, initial encounter; Y92.480 Sidewalk as the place of occurrence of the external cause
CPT/HCPCS: 70450; 70486; 72125; 73110; 73562; 90471; 90715

== ENCOUNTER 2019-09-12 08:50 | Outpatient (RCR) | payer MEDICARE, OTHER ==
[~2019-09-12 08:50] MED LIST changes: +AMOX500C2 PO; -GLIM4TAB3 PO; +GLIM4TAB5 PO; +HYDR-4226 PO
[2019-09-12 09:09] LABS: BASOPHILS % (AUTO) 1 % (0-10); EOSINOPHILS # (AUTO) 0.1 10^3/uL (0.0-0.3); EOSINOPHILS % (AUTO) 3 % (0-10); HEMATOCRIT 39 % (35-52); HEMOGLOBIN 13.4 G/DL (11.5-16.0); LYMPHOCYTES # (AUTO) 1.8 X 10^3 (1.0-4.0); LYMPHOCYTES % (AUTO) 44 % (12-44); MEAN CORPUSCULAR HEMOGLOBIN 32 PG (25-34); MEAN CORPUSCULAR HGB CONC 35 G/DL (32-36); MEAN CORPUSCULAR VOLUME 93 FL (80-99); MEAN PLATELET VOLUME 11.3 FL (7.4-10.4); MONOCYTES # (AUTO) 0.4 X 10^3 (0.0-1.0); MONOCYTES % (AUTO) 10 % (0-12); NEUTROPHILS # (AUTO) 1.7 X 10^3 (1.8-7.8); NEUTROPHILS % (AUTO) 43 % (42-75); PLATELET COUNT 118 10^3/uL (130-400); RED CELL DISTRIBUTION WIDTH 12.2 % (10.0-14.5); WHITE BLOOD COUNT 4.1 10^3/uL (4.3-11.0)
== END 2019-12-11 | disposition home or self-care (01) ==
LOC: ONC 08:50
PROVIDERS: ATTEND Internal Medicine Hematology & Oncology
DX: D50.9 Iron deficiency anemia, unspecified (principal); I10 Essential (primary) hypertension; E11.9 Type 2 diabetes mellitus without complications; E66.9 Obesity, unspecified; Z79.899 Other long term (current) drug therapy
CPT/HCPCS: 82728; 85025

== ENCOUNTER 2020-01-10 08:48 | Outpatient (RCR) | payer MEDICARE, OTHER ==
[2020-01-10 09:10] LABS: BASOPHILS # (AUTO) 0.1 10^3/uL (0.0-0.1); BASOPHILS % (AUTO) 1 % (0-10); EOSINOPHILS # (AUTO) 0.1 10^3/uL (0.0-0.3); EOSINOPHILS % (AUTO) 2 % (0-10); HEMATOCRIT 38 % (35-52); HEMOGLOBIN 13.2 G/DL (11.5-16.0); LYMPHOCYTES # (AUTO) 1.4 X 10^3 (1.0-4.0); LYMPHOCYTES % (AUTO) 35 % (12-44); MEAN CORPUSCULAR HEMOGLOBIN 32 PG (25-34); MEAN CORPUSCULAR HGB CONC 35 G/DL (32-36); MEAN CORPUSCULAR VOLUME 92 FL (80-99); MEAN PLATELET VOLUME 10.3 FL (7.4-10.4); MONOCYTES # (AUTO) 0.4 X 10^3 (0.0-1.0); MONOCYTES % (AUTO) 10 % (0-12); NEUTROPHILS # (AUTO) 2.1 X 10^3 (1.8-7.8); NEUTROPHILS % (AUTO) 52 % (42-75); PLATELET COUNT 176 10^3/uL (130-400)
== END 2020-04-09 | disposition home or self-care (01) ==
LOC: ONC 08:48
PROVIDERS: ATTEND Internal Medicine Hematology & Oncology
DX: D50.0 Iron deficiency anemia secondary to blood loss (chronic) (principal); I10 Essential (primary) hypertension; E11.9 Type 2 diabetes mellitus without complications; E66.9 Obesity, unspecified; Z79.899 Other long term (current) drug therapy
CPT/HCPCS: 82728; 85025

== ENCOUNTER 2020-05-15 08:50 | Outpatient (RCR) | payer MEDICARE, OTHER ==
[2020-05-15 09:08] LABS: BASOPHILS % (AUTO) 1 % (0-10); EOSINOPHILS # (AUTO) 0.1 10^3/uL (0.0-0.3); EOSINOPHILS % (AUTO) 3 % (0-10); HEMATOCRIT 35 % (35-52); LYMPHOCYTES # (AUTO) 0.7 10^3/uL (1.0-4.0); LYMPHOCYTES % (AUTO) 24 % (12-44); MEAN CORPUSCULAR HEMOGLOBIN 32 pg (25-34); MEAN CORPUSCULAR HGB CONC 35 g/dL (32-36); MEAN CORPUSCULAR VOLUME 93 fL (80-99); MEAN PLATELET VOLUME 10.4 fL (9.0-12.2); MONOCYTES # (AUTO) 0.4 10^3/uL (0.0-1.0); MONOCYTES % (AUTO) 12 % (0-12); NEUTROPHILS # (AUTO) 1.8 10^3/uL (1.8-7.8); NEUTROPHILS % (AUTO) 60 % (42-75); PLATELET COUNT 157 10^3/uL (130-400); WHITE BLOOD COUNT 3.1 10^3/uL (4.3-11.0)
[2020-05-15 09:36] LABS: ALANINE AMINOTRANSFERASE 29 U/L (0-55); ALBUMIN 3.6 GM/DL (3.2-4.5); ALKALINE PHOSPHATASE 82 U/L (40-136); BILIRUBIN,TOTAL 0.6 MG/DL (0.1-1.0); BUN/CREATININE RATIO 13; CALCIUM 8.5 MG/DL (8.5-10.1); CARBON DIOXIDE 26 MMOL/L (21-32); CHLORIDE 104 MMOL/L (98-107); GFR ESTIMATED > 60; GLUCOSE 154 MG/DL (70-105); POTASSIUM 3.9 MMOL/L (3.6-5.0); SODIUM 139 MMOL/L (135-145); TOTAL PROTEIN 6.6 GM/DL (6.4-8.2)
== END 2020-08-13 | disposition home or self-care (01) ==
LOC: LAB 08:50
PROVIDERS: ATTEND Nurse Practitioner Family
DX: I10 Essential (primary) hypertension (principal); E11.9 Type 2 diabetes mellitus without complications
CPT/HCPCS: 36415; 80053; 82043; 83036; 85025

== ENCOUNTER 2020-05-22 09:22 | Outpatient (RCR) | payer MEDICARE, OTHER ==
[2020-05-15 09:24] LABS: BASOPHILS % (AUTO) 1 % (0-10); EOSINOPHILS # (AUTO) 0.1 10^3/uL (0.0-0.3); EOSINOPHILS % (AUTO) 3 % (0-10); HEMATOCRIT 35 % (35-52); LYMPHOCYTES # (AUTO) 0.7 10^3/uL (1.0-4.0); LYMPHOCYTES % (AUTO) 24 % (12-44); MEAN CORPUSCULAR HEMOGLOBIN 32 pg (25-34); MEAN CORPUSCULAR HGB CONC 35 g/dL (32-36); MEAN CORPUSCULAR VOLUME 93 fL (80-99); MEAN PLATELET VOLUME 10.4 fL (9.0-12.2); MONOCYTES # (AUTO) 0.4 10^3/uL (0.0-1.0); MONOCYTES % (AUTO) 12 % (0-12); NEUTROPHILS # (AUTO) 1.8 10^3/uL (1.8-7.8); NEUTROPHILS % (AUTO) 60 % (42-75); PLATELET COUNT 157 10^3/uL (130-400); WHITE BLOOD COUNT 3.1 10^3/uL (4.3-11.0)
[2020-05-15 09:34] LABS: ALANINE AMINOTRANSFERASE 28 U/L (0-55); ALBUMIN 3.6 GM/DL (3.2-4.5); ALKALINE PHOSPHATASE 80 U/L (40-136); BILIRUBIN,TOTAL 0.5 MG/DL (0.1-1.0); BUN/CREATININE RATIO 13; CALCIUM 8.4 MG/DL (8.5-10.1); CARBON DIOXIDE 26 MMOL/L (21-32); CHLORIDE 104 MMOL/L (98-107); GFR ESTIMATED > 60; GLUCOSE 155 MG/DL (70-105); SODIUM 139 MMOL/L (135-145); TOTAL PROTEIN 6.5 GM/DL (6.4-8.2)
== END 2020-08-13 | disposition home or self-care (01) ==
LOC: ONC 09:22
PROVIDERS: ATTEND Internal Medicine Hematology & Oncology
DX: D50.9 Iron deficiency anemia, unspecified (principal); I10 Essential (primary) hypertension; E11.9 Type 2 diabetes mellitus without complications; E66.9 Obesity, unspecified; Z79.899 Other long term (current) drug therapy
CPT/HCPCS: 80053; 82728; 99213

== ENCOUNTER 2020-11-21 08:56 | Outpatient (RCR) | payer MEDICARE, OTHER ==
[2020-11-21 09:03] LABS: BASOPHILS # (AUTO) 0.1 10^3/uL (0.0-0.1); BASOPHILS % (AUTO) 2 % (0-10); EOSINOPHILS # (AUTO) 0.1 10^3/uL (0.0-0.3); EOSINOPHILS % (AUTO) 4 % (0-10); HEMATOCRIT 38 % (35-52); HEMOGLOBIN 12.9 g/dL (11.5-16.0); LYMPHOCYTES # (AUTO) 0.7 10^3/uL (1.0-4.0); LYMPHOCYTES % (AUTO) 22 % (12-44); MEAN CORPUSCULAR HEMOGLOBIN 32 pg (25-34); MEAN CORPUSCULAR HGB CONC 34 g/dL (32-36); MEAN CORPUSCULAR VOLUME 94 fL (80-99); MEAN PLATELET VOLUME 10.5 fL (9.0-12.2); MONOCYTES # (AUTO) 0.5 10^3/uL (0.0-1.0); MONOCYTES % (AUTO) 14 % (0-12); NEUTROPHILS # (AUTO) 1.8 10^3/uL (1.8-7.8); NEUTROPHILS % (AUTO) 58 % (42-75); PLATELET COUNT 170 10^3/uL (130-400); WHITE BLOOD COUNT 3.1 10^3/uL (4.3-11.0)
== END 2021-02-19 | disposition home or self-care (01) ==
LOC: ONC 08:56
PROVIDERS: ATTEND Internal Medicine Hematology & Oncology
DX: D50.9 Iron deficiency anemia, unspecified (principal); I10 Essential (primary) hypertension; E11.9 Type 2 diabetes mellitus without complications; E66.9 Obesity, unspecified; Z79.899 Other long term (current) drug therapy
CPT/HCPCS: 85025

== ENCOUNTER 2021-05-22 10:20 | Outpatient (RCR) | payer MEDICARE, OTHER ==
[2021-05-15 09:15] LABS: BASOPHILS % (AUTO) 1 % (0-10); EOSINOPHILS # (AUTO) 0.1 10^3/uL (0.0-0.3); EOSINOPHILS % (AUTO) 2 % (0-10); HEMATOCRIT 37 % (35-52); LYMPHOCYTES # (AUTO) 0.8 10^3/uL (1.0-4.0); LYMPHOCYTES % (AUTO) 16 % (12-44); MEAN CORPUSCULAR HEMOGLOBIN 32 pg (25-34); MEAN CORPUSCULAR HGB CONC 35 g/dL (32-36); MEAN CORPUSCULAR VOLUME 92 fL (80-99); MEAN PLATELET VOLUME 10.2 fL (9.0-12.2); MONOCYTES # (AUTO) 0.6 10^3/uL (0.0-1.0); MONOCYTES % (AUTO) 12 % (0-12); NEUTROPHILS # (AUTO) 3.4 10^3/uL (1.8-7.8); NEUTROPHILS % (AUTO) 69 % (42-75); PLATELET COUNT 190 10^3/uL (130-400)
[2021-05-15 09:36] LABS: ALBUMIN 3.8 GM/DL (3.2-4.5); BILIRUBIN,TOTAL 0.7 MG/DL (0.1-1.0); CALCIUM 9.2 MG/DL (8.5-10.1); CREATININE SERUM 0.81 MG/DL (0.60-1.30); POTASSIUM 4.2 MMOL/L (3.6-5.0); TOTAL PROTEIN 6.9 GM/DL (6.4-8.2)
== END 2021-08-01 | disposition home or self-care (01) ==
LOC: ONC 10:20
PROVIDERS: ATTEND Internal Medicine Hematology & Oncology
DX: D50.9 Iron deficiency anemia, unspecified (principal); I10 Essential (primary) hypertension; E11.9 Type 2 diabetes mellitus without complications; E66.9 Obesity, unspecified; Z79.899 Other long term (current) drug therapy
CPT/HCPCS: 80053; 82728; 85025; 99213